=== PATIENT | male | born 1940 | race Caucasian/White ===

== ENCOUNTER 2017-02-25 18:06 | Inpatient (IN) | payer MEDICARE, OTHER ==
[2017-02-25] MEDS ORDERED: Bisacodyl 5 MG TAB PO PRN (20:04)
[2017-02-25] MEDS ORDERED: Morphine PF 1 MG/ML SYR IVP PRN (20:04)
[2017-02-25] MEDS ORDERED: Ondansetron HCl/PF 4 MG/2 ML Vial IVP PRN (20:04)
[2017-02-25] MEDS ORDERED: Ondansetron ODT 4 MG TAB SL PRN (20:04)
[2017-02-25] MEDS ORDERED: Acetaminophen 650 MG Suppository PR PRN (20:04)
[2017-02-25] MEDS ORDERED: Acetaminophen 325 MG TAB PO PRN (20:04)
[2017-02-25] MEDS ORDERED: Sodium Chloride 0.9% 1,000 ML IV SCH (20:15)
[2017-02-25] MEDS ORDERED: VANCOMYCIN IVPB PRN (20:27)
[2017-02-25] MEDS ORDERED: Vancomycin HCl 1 GM in Premix Bag 1 BAG IVPB SCH ×2 (20:30→21:00)
[2017-02-25] MEDS: Gabapentin 300 MG CAP PO SCH (20:54)
[2017-02-25] MEDS: Sodium Chloride 0.9% 1,000 ML IV SCH (21:50)
[2017-02-25] MEDS: Piperacillin/Tazobactam 4.5 GM in Sodium Chloride 0.9% 100 ML IVPB SCH (22:10)
--- NOTE | 2017-02-25 22:42 | HP ---
PRIMARY CARE PHYSICIAN: Dr. Get Paris M.D. CHIEF COMPLAINT: Cough. HISTORY OF PRESENT ILLNESS: Mr. De La Torre is a pleasant 77-year-old gentleman, who was seen at [facility] on 02/25/2017 following transfer from the emergency room at [place]. 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 He subsequently underwent bilateral tonsillecto my, followed by chemotherapy and radiation therapy for 7 weeks. His oncologist is Dr. Olivia Schmid. Following chemotherapy and radiation therapy, he was at home when he started getting weaker. Over t he last 2 weeks, he has been at inpatient rehabilitation. He reports that he has not been eating we ll. He also reports painful swallowing. Two days ago, he was found to have cough. He reports that it is productive of sputum, which is mucoid. He also reports having chills 2 days ago. He denies any vomiting or diarrhea. He denies any chest pain. He denies any abdominal pain. He reports gene ralized weakness. Today, he was found to be tremulous. He denies any lightheadedness. He was sent to the emergency r oom at [place] and from there he was transferred to [facility]. REVIEW OF SYSTEMS: The following complete review of systems was negative, unless otherwise mentione d in the HPI or below: Constitutional: Weight loss or gain, sense of well-being, ability to conduct usual activities, exer cise tolerance. Skin/Breast: Rash, itching, changes in hair growth or loss, nail changes, breast lumps, tenderness, swelling, nipple discharge. Eyes: Vision, double vision, tearing, blind spots, pain. ENT/Mouth: Headaches (location, time of onset, duration, precipitating factors), vertigo, lighthead edness, injury. Vision, double vision, tearing, blind spots, pain, nose bleeding, colds, obstruction , discharge, dental difficulties, gingival bleeding, dentures, neck stiffness, pain, tenderness, mas ses in thyroid or other areas Cardiovascular: Precordial pain, substernal distress, palpitations, syncope, dyspnea on exertion, o rthopnea, nocturnal paroxysmal dyspnea, edema, cyanosis, hypertension, heart murmurs, varicosities, phlebitis, claudication. Respiratory: Pain, shortness of breath, wheezing, stridor, cough, hemoptysis, fever or night sweats . Gastrointestinal: Poor appetite, dysphagia, indigestion, abdominal pain, heartburn, eructation, migel sea, vomiting, hematemesis, jaundice, constipation, or diarrhea, abnormal stools (karen-colored, radha y, bloody, greasy, foul smelling), flatulence, hemorrhoids, recent changes in bowel habits. Genitourinary: Urgency, frequency, dysuria, nocturia, hematuria, polyuria, oliguria, unusual (or ch corry in) color of urine, stones, hesitancy, change in size of stream, dribbling, acute retention or incontinence, libido, potency. Musculoskeletal: Pain, swelling, redness or heat of muscles or joints, limitation, of motion, muscular weakness, atrophy, cramps. Neurologic/Psychiatric: Convulsions, paralyses, tremor, incoordination, parasthesias, difficulties with memory of speech, sensory or motor disturbances, or muscular coordination (ataxia, tremor), emo tional problems, anxiety, depression, previous psychiatric care, unusual perceptions, hallucinations . Allergy/Immunologic: Skin rash, anemia, bleeding tendency, polydipsia, polyuria, intolerance to hea t or cold. PAST MEDICAL HISTORY: Significant for hepatitis C, reportedly cleared after antiviral therapy, cirr hosjonathan, tonsillar cancer, status post chemotherapy and radiation therapy. His next oncologist appoin tment is on 03/14/2017. PAST SURGICAL HISTORY: Significant for right knee replacement, hernia repair, and tonsillectomy. SOCIAL HISTORY: The patient denies tobacco use, alcohol use, or recreational drug use. FAMILY HISTORY: No family history of malignancy. CODE STATUS: I discussed his code status. He is FULL CODE. ALLERGIES: No known drug allergies. CURRENT MEDICATIONS: Include fentanyl 12 mcg per hour transdermal patch q.72 hours, gabapentin 300 mg 3 times a day, Lasix 40 mg daily, and spironolactone 25 mg daily. PHYSICAL EXAMINATION: GENERAL: Mr. De La Torre is awake and alert, appears tired. Not in acute distress. VITAL SIGNS: Blood pressure is 116/75, pulse is 87. He is breathing at rate of 21 and saturating 9 8% on 2 liters of oxygen. He is afebrile. Face appears emaciated. EYES: No scleral icterus. No conjunctival pallor. ENT: Dry mucosal membranes, no oropharyngeal erythema or exudates. NECK: Supple, nontender, normal range of movement. Trachea is midline. RESPIRATORY: Accessory muscles of breathing are not active. Chest wall movements are symmetric ilsa aterally. LUNGS: Examination reveals bronchial breathing over both upper lobes. CARDIOVASCULAR: S1 and S2 are heard, regular. Peripheral pulses palpable. No carotid bruit, no pe ricardial rub. ABDOMEN: Soft, distended, nontender, fluid thrill present, no hepatomegaly, no splenomegaly. SKIN: Radiation keratitis present over the left side of neck. Neck is erythematous. NEUROLOGIC: Cranial nerves II through XII intact, deep tendon reflexes 2+. MUSCULOSKELETAL: Power is 5/5 in all 4 extremities. Normal range of movement at all major extremit ies joints. He has pitting edema of both lower extremities LYMPHATIC: No cervical lymphadenopathy. PSYCHIATRIC: Normal mood, normal affect, patient is oriented to person, place, and time. LABORATORY DATA: Mr. De La Torre's labs and investigations were reviewed. He had chest x-ray at [facility] [place], which shows bilateral upper lobe pulmonary infiltrates. He is hyponatremic, with sodium of 1 26, potassium level is slightly elevated at 4.6, creatinine is normal at 0.8, blood urea nitrogen is elevated at 32.4, total bilirubin is mildly elevated at 1.7, alkaline phosphatase, AST and ALT are normal, albumin is decreased at 1.9, white count is elevated at 15,000, of which 89.8% are neutrophi ls, he has a hemoglobin of 12.2 and thrombocytopenia with platelet count of 117,000. ASSESSMENT AND PLAN: Mr. De La Torre is a pleasant 77-year-old gentleman, who was seen at [facility] on 02/25/2017. His problem list includes: 1. Pneumonia: Mr. Zuniga has been in and out of healthcare facilities. He will be treated with intravenous Zosyn, levofloxacin, and vancomycin. Once he improves, antibiotics will be narrowed. 2. Hyponatremia: We will provide intravenous normal saline, recheck sodium level. We will initiat e further workup if sodium level is not improving. Etiology unclear at this time, could be related to pneumonia. 3. Tonsillar cancer. The patient to follow up with his oncologist as scheduled. 4. Aspiration risk: We will request a swallow evaluation. 5. Generalized weakness: We will request a walking program to assess him. He may need physical th erapy evaluation and treatment. 6. Poor oral intake. The patient reports that it is secondary to pain. We will start him on GI co cktail. We will also request dietitian consult. Many thanks for allowing me to participate in your patient's care. Please feel free to contact me w ith any questions or concerns. LEVEL OF RISK: Moderate. LEVEL OF COMPLEXITY: Moderate.
[2017-02-26] MEDS: Lidocaine 2% Viscous Solution 10 ML, Aluminum & Magnesium Hydroxide 30 ML SSW PRN ×8 (05:23→20:33)
[2017-02-26] MEDS: Piperacillin/Tazobactam 4.5 GM in Sodium Chloride 0.9% 100 ML IVPB SCH ×3 (05:25→23:25)
[2017-02-26 05:29] LABS: Anion Gap 10 mmol/L (10-20); BUN (Urea Nitrogen) 29 mg/dL (8.4-25.7); Calc. Creatinine Clearance 87 mL/min (70-130); Calcium 7.7 mg/dL (7.8-10.44); Carbon Dioxide 24 mmol/L (23-31); Chloride 94 mmol/L (98-107); Estimated GFR-MDRD Greater than 90
[2017-02-26 05:50] LABS: #Eosinphils 0.2 thou/uL (0.0-0.7); #Lymphocytes 0.5 thou/uL (1.20-3.40); #Monocytes 0.7 thou/uL (0.11-0.59); #Neutrophils 5.8 thou/uL (1.40-6.50); %Basophils 0.5 % (0.0-1.0); %Eosinophils 2.7 % (0.0-10.0); %Lymphocytes 6.5 % (21.0-51.0); %Monocytes 9.1 % (0.0-10.0); Mean Platelet Volume 7.3 fL (7.4-10.4); Red Blood Cell (RBC) Count 3.83 mill/uL (4.70-6.10); White Blood Cell (WBC) Count 7.1 thou/uL (4.8-10.8)
[2017-02-26] MEDS: Vancomycin HCl 1.25 GM in Sodium Chloride 0.9% 250 ML 250 ML IVPB SCH ×2 (06:09→17:23)
[2017-02-26] MEDS: Furosemide 20 MG TAB PO SCH (07:32)
[2017-02-26] MEDS: Enoxaparin Sodium 40 MG/0.4 ML SYRINGE SC SCH (07:32)
[2017-02-26] MEDS: Gabapentin 300 MG CAP PO SCH ×3 (07:32→20:33)
[2017-02-26] MEDS: Spironolactone 100 MG TAB PO SCH (07:32)
--- NOTE | 2017-02-26 09:28 | RAD ---
PORTABLE UPRIGHT CHEST 1 VIEW: HISTORY: A 77-year-old male with pneumonia. FINDINGS: Patchy linear interstitial parenchymal changes are noted bilaterally in the perihilar regions and up per lung zones with some bilateral alveolar parenchymal changes as well. These findings are certain ly consistent with that of atypical bilateral pneumonia or bilateral pneumonitis. Heart size is wit hin normal limits. IMPRESSION: Bilateral interstitial and linear parenchymal changes, evidence for bilateral pneumonia and probably atypical pneumonia or pneumonitis. Treatment and short-term followup for complete clearing is pennie chong. POS: JUAN
[2017-02-26 09:45] LABS: Bilirubin Negative (Negative); Blood, Urine Negative (Negative); Glucose, Urine (Dipstick) Negative (Negative); Ketone, Urine Negative (Negative); Nitrite Negative (Negative); Protein, Urine (Dipstick) Negative (Neg-Trace); Urobilinogen 0.2 mg/dL (0.2-1.0)
[2017-02-26 09:50] LABS: Bacteria/HPF None Seen HPF (None Seen); Hyaline Casts/LPF 0-3 HYALINE CAST LPF (0-3 Hyaline); RBC/HPF 0-3 HPF (0-3); Squamous Epithelial None Seen HPF (0-3); WBC/HPF 0-3 HPF (0-3)
[2017-02-26] MEDS: Sodium Chloride 0.9% 1,000 ML IV SCH (11:50)
--- NOTE | 2017-02-26 11:57 | PDOC.PN ---
- Subjective Encounter Start Date: 02/26/17 Encounter Start Time: 11:00 Patient seen and examined. No new complaints. No overnight events - Objective Resuscitation Status: Resuscitation Status FULL:Full Resuscitation MAR Reviewed: Yes Vital Signs & Weight: Vital Signs (12 hours) Temp Pulse Resp BP BP Pulse Ox 02/26/17 08:00 97.4 F L 87 20 96 02/26/17 07:51 97.4 F L 87 20 109/68 92 L 02/26/17 04:00 98.0 F 80 18 111/67 94 L 02/26/17 00:00 97.7 F 89 18 100/64 92 L Weight Weight 168 lb I&O: 02/25/17 02/26/17 02/27/17 06:59 06:59 06:59 Intake Total 1550 240 Balance 1550 240 Result Diagrams: 02/26/17 04:53 02/26/17 04:53 Radiology Reviewed by me: Yes (chest xray) Phys Exam - Physical Examination Constitutional: NAD HEENT: PERRLA, moist MMs, sclera anicteric Neck: no JVD, supple Respiratory: no wheezing, no rales, no rhonchi Cardiovascular: RRR, no significant murmur, no rub Gastrointestinal: soft, positive bowel sounds ascites+ Musculoskeletal: edema present Neurological: non-focal, normal sensation Lymphatic: no nodes Psychiatric: normal affect Skin: no rash, normal turgor Dx/Plan (1) Cirrhosis of liver Code(s): K74.60 - UNSPECIFIED CIRRHOSIS OF LIVER Status: Acute Qualifiers: Ascites presence: with ascites (2) Ascites Code(s): R18.8 - OTHER ASCITES Status: Acute (3) Healthcare associated bacterial pneumonia Code(s): J15.9 - UNSPECIFIED BACTERIAL PNEUMONIA Status: Acute (4) Hyponatremia Code(s): E87.1 - HYPO-OSMOLALITY AND HYPONATREMIA Status: Acute (5) Thrombocytopenia Code(s): D69.6 - THROMBOCYTOPENIA, UNSPECIFIED Status: Acute (6) Anemia, normocytic normochromic Code(s): D64.9 - ANEMIA, UNSPECIFIED Status: Chronic (7) Failure to thrive Code(s): [id number] - Status: Chronic (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 SYSTEM Status: Chronic - Plan cont current plan of care, plan discussed w/ family, continue antibiotics * DC IVF * medication reviewed as below * symptomatic treatment. * follow up on culture * continue breanne crocker Review of Systems - Review of Systems Eyes: negative: Pain, Vision Change, Conjunctivae Inflammation, Eyelid Inflammation, Redness, Other ENT: negative: Ear Pain, Ear Discharge, Nose Pain, Nose Discharge, Nose Congestion, Mouth Pain, Mouth Swelling, Throat Pain, Throat Swelling, Other Respiratory: negative: Cough, Dry, Shortness of Breath, Hemoptysis, SOB with Excertion, Pleuritic Pain, Sputum, Wheezing Cardiovascular: Edema. negative: Chest Pain, Palpitations, Orthopnea, Paroxysmal Noc. Dyspnea, Light Headedness, Other Gastrointestinal: Abdominal Pain. negative: Nausea, Vomiting, Diarrhea, Constipation, Melena, Hematochezia, Other Genitourinary: negative: Dysuria, Frequency, Incontinence, Hematuria, Retention , Other Musculoskeletal: negative: Neck Pain, Shoulder Pain, Arm Pain, Back Pain, Hand Pain, Leg Pain, Foot Pain, Other Skin: negative: Rash, Lesions, Chi, Bruising, Other - Medications/Allergies Allergies/Adverse Reactions: Allergies Allergy/AdvReac Type Severity Reaction Status Date / Time No Known Allergies Allergy Verified 08/24/16 12:15 Medications: Current Medications Acetaminophen (Tylenol) 650 mg PO Q4H PRN PRN Reason: Headache/Fever or Pain Acetaminophen (Tylenol) 650 mg MS Q4H PRN PRN Reason: Headache/Fever or Pain Bisacodyl (Dulcolax) 10 mg PO DAILYPRN PRN PRN Reason: Constipation Lidocaine HCl 10 ml/ Al (Hydroxide/Mg Hydroxide 30 ml) 0 ml SSW TIDPRN PRN PRN Reason: painful swallowing Last Admin: 02/26/17 05:23 Dose: 1 dose Enoxaparin Sodium (Lovenox) 40 mg SC 0900 [facility] Last Admin: 02/26/17 07:32 Dose: 40 mg Fentanyl (Duragesic) 12 mcg TD Q3D [facility] Last Admin: 02/25/17 20:54 Dose: 12 mcg Furosemide (Lasix) 20 mg PO DAILY [facility] Last Admin: 02/26/17 07:32 Dose: 20 mg Gabapentin (Neurontin) 300 mg PO TID [facility] Last Admin: 02/26/17 07:32 Dose: 300 mg Levofloxacin 750 mg/ Device 150 mls @ 100 mls/hr IVPB Q24HR [facility] Sodium Chloride (Normal Saline 0.9%) 1,000 mls @ 70 mls/hr IV .[id number] [facility] Last Admin: 02/26/17 11:50 Dose: 1,000 mls Piperacillin Sod/Tazobactam (Sod 4.5 gm/ Sodium Chloride) 100 mls @ 200 mls/hr IVPB Q8HR [facility] Last Admin: 02/26/17 05:25 Dose: 100 mls Vancomycin HCl 1.25 gm/ Sodium (Chloride) 250 mls @ 166.667 mls/hr IVPB 0600, 1800 [facility] Last Admin: 02/26/17 06:09 Dose: 250 mls Miscellaneous Medication (Pharmacy To Dose) 1 each IVPB PRN PRN PRN Reason: PNEUMONIA Stop: 03/08/17 20:28 Spironolactone (Aldactone) 100 mg PO DAILY [facility] Last Admin: 02/26/17 07:32 Dose: 100 mg
[2017-02-27] MEDS: Vancomycin HCl 1.25 GM in Sodium Chloride 0.9% 250 ML 250 ML IVPB SCH ×2 (05:51→16:58)
[2017-02-27] MEDS: Piperacillin/Tazobactam 4.5 GM in Sodium Chloride 0.9% 100 ML IVPB SCH ×3 (05:51→21:34)
[2017-02-27 06:10] LABS: #Eosinphils 0.2 thou/uL (0.0-0.7); #Lymphocytes 0.5 thou/uL (1.20-3.40); #Monocytes 0.9 thou/uL (0.11-0.59); #Neutrophils 7.6 thou/uL (1.40-6.50); %Basophils 0.2 % (0.0-1.0); %Eosinophils 1.8 % (0.0-10.0); %Lymphocytes 5.6 % (21.0-51.0); %Monocytes 9.9 % (0.0-10.0); Mean Platelet Volume 7.6 fL (7.4-10.4); Red Blood Cell (RBC) Count 4.04 mill/uL (4.70-6.10); White Blood Cell (WBC) Count 9.3 thou/uL (4.8-10.8)
[2017-02-27 06:27] LABS: ALT (SGPT) 15 U/L (8-55); AST (SGOT) 38 U/L (5-34); Alkaline Phosphatase 62 U/L (40-150); Anion Gap 13 mmol/L (10-20); BUN (Urea Nitrogen) 27 mg/dL (8.4-25.7); Bilirubin, Total 2.3 mg/dL (0.2-1.2); Calc. Creatinine Clearance 82 mL/min (70-130); Carbon Dioxide 20 mmol/L (23-31); Chloride 96 mmol/L (98-107); Estimated GFR-MDRD 89; Globulin 4.6 g/dL (2.4-3.5); Protein, Total 6.3 g/dL (5.8-8.1)
[2017-02-27] MEDS: Gabapentin 300 MG CAP PO SCH ×3 (07:37→19:48)
[2017-02-27] MEDS: Enoxaparin Sodium 40 MG/0.4 ML SYRINGE SC SCH (07:37)
[2017-02-27] MEDS: Furosemide 20 MG TAB PO SCH (07:37)
[2017-02-27] MEDS: Spironolactone 100 MG TAB PO SCH (07:37)
[2017-02-27] MEDS ORDERED: Eucerin (Mineral Oil/Petrolatum,White) 30 gm Jar TOP PRN (09:49)
[2017-02-27] MEDS ORDERED: Ondansetron ODT 4 MG TAB PO PRN (09:49)
[2017-02-27] MEDS ORDERED: hydrALAZINE 20 MG/ML VIAL SLOW IVP PRN (09:49)
[2017-02-27] MEDS ORDERED: Sodium Chloride 0.65% Nasal 44 ML BOT EA NARE PRN (09:49)
[2017-02-27] MEDS ORDERED: Milk Of Magnesia 30 ML UDCUP PO PRN (09:49)
[2017-02-27] MEDS ORDERED: Diabetic Tussin 200 MG/10 ML UDCUP PO PRN (09:49)
[2017-02-27] MEDS ORDERED: Ondansetron HCl/PF 4 MG/2 ML Vial IVP PRN (09:49)
[2017-02-27] MEDS ORDERED: Chloraseptic Spray 180 ml Bottle PO PRN (09:49)
[2017-02-27] MEDS ORDERED: Loratadine 10 MG TAB PO PRN (09:49)
[2017-02-27] MEDS ORDERED: Artificial Tears 18 DROP/0.9 ML EA EYE PRN (09:49)
[2017-02-27] MEDS ORDERED: Mag-Al 1200 mg/1200 mg/30 ML UDCUP PO PRN (09:49)
[2017-02-27] MEDS ORDERED: HYDROcodone/Acetaminophen 5/325 mg Tablet PO PRN (09:49)
[2017-02-27] MEDS ORDERED: Furosemide 20 MG/2 ML VIAL SLOW IVP SCH (10:00)
[2017-02-27] MEDS: Lidocaine 2% Viscous Solution 10 ML, Aluminum & Magnesium Hydroxide 30 ML SSW PRN ×6 (11:34→19:48)
--- NOTE | 2017-02-27 12:28 | PDOC.PN ---
- Subjective Encounter Start Date: 02/27/17 Encounter Start Time: 07:30 Patient seen and examined. feels better, less cough, no fever, weak. No overnight events - Objective Resuscitation Status: Resuscitation Status FULL:Full Resuscitation MAR Reviewed: Yes Vital Signs & Weight: Vital Signs (12 hours) Temp Pulse Resp BP Pulse Ox 02/27/17 08:00 97.7 F 87 18 121/79 96 02/27/17 03:18 97.3 F L 89 18 138/96 H 94 L Weight Admit Weight 168 lb Weight 168 lb I&O: 02/26/17 02/27/17 02/28/17 06:59 06:59 06:59 Intake Total 1550 1870 360 Balance 1550 1870 360 Result Diagrams: 02/27/17 05:52 02/27/17 05:52 Phys Exam - Physical Examination Constitutional: NAD HEENT: PERRLA, moist MMs, sclera anicteric Neck: no JVD, supple radiation skin changes around neck Respiratory: no wheezing, no rales, no rhonchi Cardiovascular: RRR, no significant murmur, no rub Gastrointestinal: soft, non-tender, positive bowel sounds ascites Musculoskeletal: pulses present, edema present Neurological: non-focal, normal sensation Lymphatic: no nodes Psychiatric: normal affect, A&O x 3 Skin: no rash, normal turgor Dx/Plan (1) Cirrhosis of liver Code(s): K74.60 - UNSPECIFIED CIRRHOSIS OF LIVER Status: Acute Qualifiers: Ascites presence: with ascites (2) Ascites Code(s): R18.8 - OTHER ASCITES Status: Acute Qualifiers: Ascites type: due to alcoholic cirrhosis Qualified Code(s): K70.31 - Alcoholic cirrhosis of liver with ascites (3) Healthcare associated bacterial pneumonia Code(s): J15.9 - UNSPECIFIED BACTERIAL PNEUMONIA Status: Acute (4) Hyponatremia Code(s): E87.1 - HYPO-OSMOLALITY AND HYPONATREMIA Status: Acute (5) Thrombocytopenia Code(s): D69.6 - THROMBOCYTOPENIA, UNSPECIFIED Status: Acute (6) Anemia, normocytic normochromic Code(s): D64.9 - ANEMIA, UNSPECIFIED Status: Chronic (7) Failure to thrive Code(s): [id number] - Status: Chronic (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 SYSTEM Status: Chronic - Plan cont current plan of care, continue antibiotics * continue vancomycin and zosyn * start PT * fluid rectriction advised * add IV lasix for diuresis * medication reviewed as below * symptomatic treatment. * repeat labs tomorrow * follow culture Review of Systems - Review of Systems Constitutional: Weakness. negative: Fever, Chills, Sweats, Malaise, Other ENT: negative: Ear Pain, Ear Discharge, Nose Pain, Nose Discharge, Nose Congestion, Mouth Pain, Mouth Swelling, Throat Pain, Throat Swelling, Other Respiratory: Cough. negative: Dry, Shortness of Breath, Hemoptysis, SOB with Excertion, Pleuritic Pain, Sputum, Wheezing Cardiovascular: negative: Chest Pain, Palpitations, Orthopnea, Paroxysmal Noc. Dyspnea, Edema, Light Headedness, Other Gastrointestinal: negative: Nausea, Vomiting, Abdominal Pain, Diarrhea, Constipation, Melena, Hematochezia, Other Genitourinary: negative: Dysuria, Frequency, Incontinence, Hematuria, Retention , Other Musculoskeletal: negative: Neck Pain, Shoulder Pain, Arm Pain, Back Pain, Hand Pain, Leg Pain, Foot Pain, Other Skin: negative: Rash, Lesions, Chi, Bruising, Other - Medications/Allergies Allergies/Adverse Reactions: Allergies Allergy/AdvReac Type Severity Reaction Status Date / Time No Known Allergies Allergy Verified 08/24/16 12:15 Medications: Current Medications Acetaminophen (Tylenol) 650 mg PO Q4H PRN PRN Reason: Headache/Fever or Pain Acetaminophen (Tylenol) 650 mg CA Q4H PRN PRN Reason: Headache/Fever or Pain Hydrocodone Bitart/Acetaminophen ([place] 5/325) 1 tab PO Q4H PRN PRN Reason: Moderate Pain (4-6) Al Hydroxide/Mg Hydroxide (Maalox) 15 ml PO Q4H PRN PRN Reason: Heartburn or Indigestion Artificial Tears (Tears Naturale) 0 drop EA EYE PRN PRN PRN Reason: Dry Eyes Bisacodyl (Dulcolax) 10 mg PO DAILYPRN PRN PRN Reason: Constipation Lidocaine HCl 10 ml/ Al (Hydroxide/Mg Hydroxide 30 ml) 0 ml SSW TIDPRN PRN PRN Reason: painful swallowing Last Admin: 02/27/17 11:34 Dose: 1 dose Enoxaparin Sodium (Lovenox) 40 mg SC 0900 [facility] Last Admin: 02/27/17 07:37 Dose: 40 mg Famotidine (Pepcid) 20 mg PO BID [facility] Fentanyl (Duragesic) 12 mcg TD Q3D [facility] Last Admin: 02/25/17 20:54 Dose: 12 mcg Furosemide (Lasix) 20 mg SLOW IVP 0600,1400 [facility] Gabapentin (Neurontin) 300 mg PO TID [facility] Last Admin: 02/27/17 07:37 Dose: 300 mg Guaifenesin (Robitussin Sf) 200 mg PO Q4H PRN PRN Reason: Cough Hydralazine HCl (Apresoline) 10 mg SLOW IVP Q4H PRN PRN Reason: Systolic BP > 180 Levofloxacin 750 mg/ Device 150 mls @ 100 mls/hr IVPB Q24HR [facility] Last Admin: 02/26/17 20:33 Dose: 150 mls Piperacillin Sod/Tazobactam (Sod 4.5 gm/ Sodium Chloride) 100 mls @ 200 mls/hr IVPB Q8HR [facility] Last Admin: 02/27/17 05:51 Dose: 100 mls Vancomycin HCl 1.25 gm/ Sodium (Chloride) 250 mls @ 166.667 mls/hr IVPB 0600, 1800 [facility] Last Admin: 02/27/17 05:51 Dose: 250 mls Lactulose (Lactulose) 10 gm PO DAILYPRN PRN PRN Reason: Constipation Loperamide HCl (Imodium) 2 mg PO PRN PRN PRN Reason: Diarrhea/Loose Stools Loratadine (Claritin) 10 mg PO DAILYPRN PRN PRN Reason: Sinus Symptoms Magnesium Hydroxide (Milk Of Magnesium) 30 ml PO DAILYPRN PRN PRN Reason: Constipation Mineral Oil/White Petrolatum (Eucerin Cream) 0 gm TOP BIDPRN PRN PRN Reason: Dry Skin Miscellaneous Medication (Pharmacy To Dose) 1 each IVPB PRN PRN PRN Reason: PNEUMONIA Stop: 03/08/17 20:28 Ondansetron HCl (Zofran Odt) 4 mg PO Q6H PRN PRN Reason: Nausea/Vomiting Ondansetron HCl (Zofran) 4 mg IVP Q6H PRN PRN Reason: Nausea/Vomiting Phenol (Chloraseptic [place] 180 Ml Bot) 0 ml PO PRN PRN PRN Reason: Sore Throat Sodium Chloride ([place] Nasal [place] 0.65%) 0 ml EA NARE QIDPRN PRN PRN Reason: Nasal Congestion Spironolactone (Aldactone) 100 mg PO DAILY [facility] Last Admin: 02/27/17 07:37 Dose: 100 mg
[2017-02-27] MEDS: Furosemide 20 MG/2 ML VIAL SLOW IVP SCH (14:06)
[2017-02-27] MEDS: Famotidine 20 MG TAB PO SCH (19:48)
[2017-02-28 05:24] LABS: PTT 42.5 SEC (22.9-36.1)
[2017-02-28 05:38] LABS: Anion Gap 12 mmol/L (10-20); BUN (Urea Nitrogen) 29 mg/dL (8.4-25.7); Calc. Creatinine Clearance 72 mL/min (70-130); Calcium 8.4 mg/dL (7.8-10.44); Carbon Dioxide 23 mmol/L (23-31); Chloride 95 mmol/L (98-107); Estimated GFR-MDRD 77
[2017-02-28 05:47] LABS: Vancomycin, Trough 32.6 ug/mL
[2017-02-28] MEDS: Piperacillin/Tazobactam 4.5 GM in Sodium Chloride 0.9% 100 ML IVPB SCH ×3 (06:15→21:57)
[2017-02-28] MEDS: Furosemide 20 MG/2 ML VIAL SLOW IVP SCH (06:15)
[2017-02-28] MEDS: Lidocaine 2% Viscous Solution 10 ML, Aluminum & Magnesium Hydroxide 30 ML SSW PRN ×6 (06:31→17:02)
[2017-02-28] MEDS: Loperamide HCl 2 MG CAP PO PRN ×2 (06:35→21:39)
[2017-02-28] MEDS: Famotidine 20 MG TAB PO SCH ×2 (08:04→21:39)
[2017-02-28] MEDS: Gabapentin 300 MG CAP PO SCH ×3 (08:04→21:39)
[2017-02-28] MEDS: Spironolactone 100 MG TAB PO SCH (08:04)
[2017-02-28] MEDS: Enoxaparin Sodium 40 MG/0.4 ML SYRINGE SC SCH (08:05)
--- NOTE | 2017-02-28 13:16 | PDOC.PN ---
- Subjective Encounter Start Date: 02/28/17 Encounter Start Time: 07:30 pt has hard time to cough out sputum, no fever, still has edema, feels weak - Objective Resuscitation Status: Resuscitation Status FULL:Full Resuscitation MAR Reviewed: Yes Vital Signs & Weight: Vital Signs (12 hours) Temp Pulse Resp BP Pulse Ox 02/28/17 11:58 97.7 F 85 18 120/79 95 02/28/17 08:00 97.6 F 91 20 02/28/17 07:22 97.6 F 91 20 123/79 94 L 02/28/17 03:46 97.5 F L 90 20 128/61 95 Weight Admit Weight 168 lb Weight 168 lb I&O: 02/27/17 02/28/17 03/01/17 06:59 06:59 06:59 Intake Total 1870 1830 480 Balance 1870 1830 480 Result Diagrams: 02/27/17 05:52 02/28/17 05:04 Additional Labs: Accuchecks 02/28/17 07:57 POC Glucose 106 Phys Exam - Physical Examination Constitutional: NAD HEENT: PERRLA, moist MMs, sclera anicteric Neck: no JVD, supple gurgling sound+ coarse sound+ Cardiovascular: RRR, no significant murmur Gastrointestinal: soft, positive bowel sounds ascites+ Musculoskeletal: pulses present, edema present Neurological: non-focal, normal sensation Psychiatric: normal affect, A&O x 3 Skin: no rash, normal turgor Dx/Plan (1) Cirrhosis of liver Code(s): K74.60 - UNSPECIFIED CIRRHOSIS OF LIVER Status: Acute Qualifiers: Ascites presence: with ascites (2) Ascites Code(s): R18.8 - OTHER ASCITES Status: Acute Qualifiers: Ascites type: due to alcoholic cirrhosis Qualified Code(s): K70.31 - Alcoholic cirrhosis of liver with ascites (3) Healthcare associated bacterial pneumonia Code(s): J15.9 - UNSPECIFIED BACTERIAL PNEUMONIA Status: Acute (4) Hyponatremia Code(s): E87.1 - HYPO-OSMOLALITY AND HYPONATREMIA Status: Acute (5) Thrombocytopenia Code(s): D69.6 - THROMBOCYTOPENIA, UNSPECIFIED Status: Acute (6) Anemia, normocytic normochromic Code(s): D64.9 - ANEMIA, UNSPECIFIED Status: Chronic (7) Failure to thrive Code(s): [id number] - Status: Chronic (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 SYSTEM Status: Chronic - Plan cont current plan of care, continue antibiotics * continue vancomycin and zosyn * increase lasix * add mucinex * start PT. * medication reviewed as below * symptomatic treatment * will need placement Review of Systems - Review of Systems Constitutional: Weakness. negative: Fever, Chills, Sweats, Malaise, Other Respiratory: Cough, Shortness of Breath, Sputum. negative: Dry, Hemoptysis, SOB with Excertion, Pleuritic Pain, Wheezing Cardiovascular: Edema. negative: Chest Pain, Palpitations, Orthopnea, Paroxysmal Noc. Dyspnea, Light Headedness, Other Gastrointestinal: Diarrhea. negative: Nausea, Vomiting, Abdominal Pain, Constipation, Melena, Hematochezia, Other Genitourinary: negative: Dysuria, Frequency, Incontinence, Hematuria, Retention , Other Musculoskeletal: negative: Neck Pain, Shoulder Pain, Arm Pain, Back Pain, Hand Pain, Leg Pain, Foot Pain, Other - Medications/Allergies Allergies/Adverse Reactions: Allergies Allergy/AdvReac Type Severity Reaction Status Date / Time No Known Allergies Allergy Verified 08/24/16 12:15 Medications: Current Medications Acetaminophen (Tylenol) 650 mg PO Q4H PRN PRN Reason: Headache/Fever or Pain Acetaminophen (Tylenol) 650 mg [place] Q4H PRN PRN Reason: Headache/Fever or Pain Hydrocodone Bitart/Acetaminophen ([place] 5/325) 1 tab PO Q4H PRN PRN Reason: Moderate Pain (4-6) Al Hydroxide/Mg Hydroxide (Maalox) 15 ml PO Q4H PRN PRN Reason: Heartburn or Indigestion Albuterol/Ipratropium (Duoneb) 3 ml NEB [id number] KARLA Artificial Tears (Tears Naturale) 0 drop EA EYE PRN PRN PRN Reason: Dry Eyes Bisacodyl (Dulcolax) 10 mg PO DAILYPRN PRN PRN Reason: Constipation Lidocaine HCl 10 ml/ Al (Hydroxide/Mg Hydroxide 30 ml) 0 ml SSW TIDPRN PRN PRN Reason: painful swallowing Last Admin: 02/28/17 12:16 Dose: 1 dose Enoxaparin Sodium (Lovenox) 40 mg SC 0900 [facility] Last Admin: 02/28/17 08:05 Dose: 40 mg Famotidine (Pepcid) 20 mg PO BID [facility] Last Admin: 02/28/17 08:04 Dose: 20 mg Fentanyl (Duragesic) 12 mcg TD Q3D [facility] Last Admin: 02/25/17 20:54 Dose: 12 mcg Furosemide (Lasix) 40 mg SLOW IVP 0600,1400 [facility] Gabapentin (Neurontin) 300 mg PO TID [facility] Last Admin: 02/28/17 08:04 Dose: 300 mg Guaifenesin (Robitussin Sf) 200 mg PO Q4H PRN PRN Reason: Cough Guaifenesin (Mucinex) 600 mg PO Q12HR [facility] Hydralazine HCl (Apresoline) 10 mg SLOW IVP Q4H PRN PRN Reason: Systolic BP > 180 Levofloxacin 750 mg/ Device 150 mls @ 100 mls/hr IVPB Q24HR [facility] Last Admin: 02/27/17 19:48 Dose: 150 mls Piperacillin Sod/Tazobactam (Sod 4.5 gm/ Sodium Chloride) 100 mls @ 200 mls/hr IVPB Q8HR [facility] Last Admin: 02/28/17 06:15 Dose: 100 mls Vancomycin HCl 1.25 gm/ Sodium (Chloride) 250 mls @ 166.667 mls/hr IVPB 0600, 1800 [facility] Lactulose (Lactulose) 10 gm PO DAILYPRN PRN PRN Reason: Constipation Loperamide HCl (Imodium) 2 mg PO PRN PRN PRN Reason: Diarrhea/Loose Stools Last Admin: 02/28/17 06:35 Dose: 2 mg Loratadine (Claritin) 10 mg PO DAILYPRN PRN PRN Reason: Sinus Symptoms Magnesium Hydroxide (Milk Of Magnesium) 30 ml PO DAILYPRN PRN PRN Reason: Constipation Mineral Oil/White Petrolatum (Eucerin Cream) 0 gm TOP BIDPRN PRN PRN Reason: Dry Skin Miscellaneous Medication (Pharmacy To Dose) 1 each IVPB PRN PRN PRN Reason: PNEUMONIA Stop: 03/08/17 20:28 Ondansetron HCl (Zofran Odt) 4 mg PO Q6H PRN PRN Reason: Nausea/Vomiting Ondansetron HCl (Zofran) 4 mg IVP Q6H PRN PRN Reason: Nausea/Vomiting Phenol (Chloraseptic [place] 180 Ml Bot) 0 ml PO PRN PRN PRN Reason: Sore Throat Sodium Chloride ([place] Nasal [place] 0.65%) 0 ml EA NARE QIDPRN PRN PRN Reason: Nasal Congestion Spironolactone (Aldactone) 100 mg PO DAILY [facility] Last Admin: 02/28/17 08:04 Dose: 100 mg
[2017-02-28] MEDS: Furosemide 40 MG/4 ML VIAL SLOW IVP SCH (13:32)
[2017-02-28 19:05] LABS: Vancomycin, Random 26.6 ug/mL (See Comment)
[2017-02-28] MEDS: guaiFENesin ER 600 MG TAB PO SCH (21:39)
[2017-03-01] MEDS: Lidocaine 2% Viscous Solution 10 ML, Aluminum & Magnesium Hydroxide 30 ML SSW PRN ×2 (04:24)
[2017-03-01 05:15] LABS: Anion Gap 14 mmol/L (10-20); BUN (Urea Nitrogen) 28 mg/dL (8.4-25.7); Calc. Creatinine Clearance 72 mL/min (70-130); Calcium 8.3 mg/dL (7.8-10.44); Carbon Dioxide 21 mmol/L (23-31); Chloride 96 mmol/L (98-107); Estimated GFR-MDRD 76; Magnesium 1.9 mg/dL (1.6-2.6)
[2017-03-01 05:29] LABS: Band 6 % (5-11); Hematocrit 38.9 % (42.0-52.0); Mean Platelet Volume 6.8 fL (7.4-10.4); Neutrophil 86 % (42-75); Red Blood Cell (RBC) Count 4.08 mill/uL (4.70-6.10); White Blood Cell (WBC) Count 9.2 thou/uL (4.8-10.8)
[2017-03-01] MEDS: Piperacillin/Tazobactam 4.5 GM in Sodium Chloride 0.9% 100 ML IVPB SCH ×3 (06:37→22:24)
[2017-03-01] MEDS: Furosemide 40 MG/4 ML VIAL SLOW IVP SCH ×2 (06:37→15:39)
[2017-03-01] MEDS: Enoxaparin Sodium 40 MG/0.4 ML SYRINGE SC SCH (08:03)
[2017-03-01] MEDS: guaiFENesin ER 600 MG TAB PO SCH ×2 (08:04→20:58)
[2017-03-01] MEDS: Gabapentin 300 MG CAP PO SCH ×3 (08:04→20:59)
[2017-03-01] MEDS: Famotidine 20 MG TAB PO SCH ×2 (08:05→20:58)
[2017-03-01] MEDS: Spironolactone 100 MG TAB PO SCH (08:05)
[2017-03-01 09:02] LABS: Vancomycin, Random 19.4 ug/mL (See Comment)
[2017-03-01] MEDS: Vancomycin HCl 1.25 GM in Sodium Chloride 0.9% 250 ML 250 ML IVPB SCH ×2 (10:32→10:33)
[2017-03-01] MEDS: Vancomycin HCl 750 MG in Sodium Chloride 0.9% 250 ML 250 ML IVPB SCH ×2 (10:49→23:12)
--- NOTE | 2017-03-01 13:24 | RAD ---
MODIFIED BARIUM SWALLOW WITH SPEECH THERAPIST: History: 77-year-old male with oropharyngeal disphasia and feeding difficulties. Fluoroscopy time: 2.2 minutes; dose of 0.615 mGy*cm\S\2. FINDINGS: The patient exhibited marked pooling in the vallecula as well as the pyriform sinuses. There was pro minent penetration and some aspiration with numerous consistencies. IMPRESSION: Penetration and aspiration with numerous consistencies. Please see speech therapy report for additional findings and recommendations. POS: JUAN
--- NOTE | 2017-03-01 13:30 | PDOC.PN ---
"- Subjective Encounter Start Date: 03/01/17 Encounter Start Time: 11:00 Patient seen and examined. No new complaints. No overnight events - Objective Resuscitation Status: Resuscitation Status FULL:Full Resuscitation MAR Reviewed: Yes Vital Signs & Weight: Vital Signs (12 hours) Temp Pulse Resp BP Pulse Ox 03/01/17 12:42 103 H 20 94 L 03/01/17 08:21 98.0 F 99 18 120/73 87 L 03/01/17 08:00 98.0 F 99 18 94 L 03/01/17 06:41 89 16 89 L 03/01/17 04:00 97.6 F 89 20 121/74 92 L Weight Admit Weight 168 lb Weight 168 lb I&O: 02/28/17 03/01/17 03/02/17 06:59 06:59 06:59 Intake Total 1829 Balance 1829 Result Diagrams: 03/01/17 04:22 03/01/17 04:22 Phys Exam - Physical Examination Constitutional: NAD HEENT: PERRLA, moist MMs, sclera anicteric Neck: no JVD, supple Respiratory: no wheezing, no rhonchi coarse rales+ scattered Cardiovascular: RRR, no significant murmur, no rub Gastrointestinal: soft, positive bowel sounds ascites|+ Musculoskeletal: pulses present, edema present Neurological: non-focal, normal sensation Psychiatric: normal affect, A&O x 3 Skin: no rash, normal turgor Dx/Plan (1) Cirrhosis of liver Code(s): K74.60 - UNSPECIFIED CIRRHOSIS OF LIVER Status: Acute Qualifiers: Ascites presence: with ascites (2) Ascites Code(s): R18.8 - OTHER ASCITES Status: Acute Qualifiers: Ascites type: due to alcoholic cirrhosis Qualified Code(s): K70.31 - Alcoholic cirrhosis of liver with ascites (3) Healthcare associated bacterial pneumonia Code(s): J15.9 - UNSPECIFIED BACTERIAL PNEUMONIA Status: Acute (4) Hyponatremia Code(s): E87.1 - HYPO-OSMOLALITY AND HYPONATREMIA Status: Acute (5) Thrombocytopenia Code(s): D69.6 - THROMBOCYTOPENIA, UNSPECIFIED Status: Acute (6) Anemia, normocytic normochromic Code(s): D64.9 - ANEMIA, UNSPECIFIED Status: Chronic (7) Failure to thrive Code(s): [id number] - Status: Chronic (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 SYSTEM Status: Chronic (9) Oropharyngeal dysphagia Code(s): R13.12 - DYSPHAGIA, OROPHARYNGEAL PHASE Status: Acute (10) Chronic hepatitis C Code(s): B18.2 - CHRONIC VIRAL HEPATITIS C Status: Chronic - Plan cont current plan of care, continue antibiotics, PT/OT, social research assistant, speech therapy * continue empiric antibiotics as below * spoke with speech therapy, pt is at risk for aspiration * discussed with patient about speech therapy result, he agreed with risk of aspiration with safest diet * medication reviewed as below * symptomatic treatment * tomorrow will repeat chest xray * continue IV lasix * will need placement when more stable. * peg is not a good option given ascites Review of Systems - Review of Systems ENT: negative: Ear Pain, Ear Discharge, Nose Pain, Nose Discharge, Nose Congestion, Mouth Pain, Mouth Swelling, Throat Pain, Throat Swelling, Other Respiratory: Cough. negative: Dry, Shortness of Breath, Hemoptysis, SOB with Excertion, Pleuritic Pain, Sputum, Wheezing Cardiovascular: Edema. negative: Chest Pain, Palpitations, Orthopnea, Paroxysmal Noc. Dyspnea, Light Headedness, Other Gastrointestinal: negative: Nausea, Vomiting, Abdominal Pain, Diarrhea, Constipation, Melena, Hematochezia, Other Genitourinary: negative: Dysuria, Frequency, Incontinence, Hematuria, Retention , Other Musculoskeletal: negative: Neck Pain, Shoulder Pain, Arm Pain, Back Pain, Hand Pain, Leg Pain, Foot Pain, Other Skin: negative: Rash, Lesions, Chi, Bruising, Other - Medications/Allergies Allergies/Adverse Reactions: Allergies Allergy/AdvReac Type Severity Reaction Status Date / Time No Known Allergies Allergy Verified 08/24/16 12:15 Medications: Current Medications Acetaminophen (Tylenol) 650 mg PO Q4H PRN PRN Reason: Headache/Fever or Pain Acetaminophen (Tylenol) 650 mg [place] Q4H PRN PRN Reason: Headache/Fever or Pain Hydrocodone Bitart/Acetaminophen ([place] 5/325) 1 tab PO Q4H PRN PRN Reason: Moderate Pain (4-6) Al Hydroxide/Mg Hydroxide (Maalox) 15 ml PO Q4H PRN PRN Reason: Heartburn or Indigestion Albuterol/Ipratropium (Duoneb) 3 ml NEB [id number] [facility] Last Admin: 03/01/17 12:42 Dose: 3 ml Artificial Tears (Tears Naturale) 0 drop EA EYE PRN PRN PRN Reason: Dry Eyes Bisacodyl (Dulcolax) 10 mg PO DAILYPRN PRN PRN Reason: Constipation Lidocaine HCl 10 ml/ Al (Hydroxide/Mg Hydroxide 30 ml) 0 ml SSW TIDPRN PRN PRN Reason: painful swallowing Last Admin: 03/01/17 04:24 Dose: 1 dose Enoxaparin Sodium (Lovenox) 40 mg SC 0900 [facility] Last Admin: 03/01/17 08:03 Dose: 40 mg Famotidine (Pepcid) 20 mg PO BID [facility] Last Admin: 03/01/17 08:05 Dose: 20 mg Fentanyl (Duragesic) 12 mcg TD Q3D [facility] Last Admin: 02/28/17 21:43 Dose: 12 mcg Furosemide (Lasix) 40 mg SLOW IVP 0600,1400 [facility] Last Admin: 03/01/17 06:37 Dose: 40 mg Gabapentin (Neurontin) 300 mg PO TID [facility] Last Admin: 03/01/17 08:04 Dose: 300 mg Guaifenesin (Robitussin Sf) 200 mg PO Q4H PRN PRN Reason: Cough Guaifenesin (Mucinex) 600 mg PO Q12HR [facility] Last Admin: 03/01/17 08:04 Dose: 600 mg Hydralazine HCl (Apresoline) 10 mg SLOW IVP Q4H PRN PRN Reason: Systolic BP > 180 Levofloxacin 750 mg/ Device 150 mls @ 100 mls/hr IVPB Q24HR [facility] Last Admin: 02/28/17 21:43 Dose: 150 mls Piperacillin Sod/Tazobactam (Sod 4.5 gm/ Sodium Chloride) 100 mls @ 200 mls/hr IVPB Q8HR [facility] Last Admin: 03/01/17 06:37 Dose: 100 mls Vancomycin HCl 750 mg/ Sodium (Chloride) 250 mls @ 250 mls/hr IVPB 1200,2359 [facility] Last Admin: 03/01/17 10:49 Dose: 250 mls Lactulose (Lactulose) 10 gm PO DAILYPRN PRN PRN Reason: Constipation Loperamide HCl (Imodium) 2 mg PO PRN PRN PRN Reason: Diarrhea/Loose Stools Last Admin: 02/28/17 21:39 Dose: 2 mg Loratadine (Claritin) 10 mg PO DAILYPRN PRN PRN Reason: Sinus Symptoms Magnesium Hydroxide (Milk Of Magnesium) 30 ml PO DAILYPRN PRN PRN Reason: Constipation Mineral Oil/White Petrolatum (Eucerin Cream) 0 gm TOP BIDPRN PRN PRN Reason: Dry Skin Miscellaneous Medication (Pharmacy To Dose) 1 each IVPB PRN PRN PRN Reason: PNEUMONIA Stop: 03/08/17 20:28 Ondansetron HCl (Zofran Odt) 4 mg PO Q6H PRN PRN Reason: Nausea/Vomiting Ondansetron HCl (Zofran) 4 mg IVP Q6H PRN PRN Reason: Nausea/Vomiting Phenol (Chloraseptic [place] 180 Ml Bot) 0 ml PO PRN PRN PRN Reason: Sore Throat Sodium Chloride ([place] Nasal [place] 0.65%) 0 ml EA NARE QIDPRN PRN PRN Reason: Nasal Congestion Spironolactone (Aldactone) 100 mg PO DAILY [facility] Last Admin: 03/01/17 08:05 Dose: 100 mg"
--- NOTE | 2017-03-01 16:43 | PQF ---
CLINICAL DOCUMENTATION IMPROVEMENT CLARIFICATION FORM: ICD-10 Updated PLEASE DO AN ADDENDUM TO THE PROGRESS NOTE WITH ANY DOCUMENTATION UPDATES OR ADDITIONS AND CARRY THROUGH TO DC SUMMARY. THANK YOU. DATE: 03/01/17 ATTN: DR. THOMAS Please exercise your independent, professional judgment in responding to the clarification form. Clinical indicators are provided on the bottom of this form for your review Please check appropriate box(s): [ x ] Aspiration Pneumonia [ ] Aspiration Bronchitis [ ] Empirically treating Gram Negative Pneumonia [ ] Empirically treating Anaerobic Pneumonia [ ] Pneumonia secondary to (specify organism / underlying disease) [ ] Simple Pneumonia (community acquired - nosocomial) [ ] Bronchopneumonia [ ] Pneumonia of unknown etiology [ ] Other diagnosis [ ] Unable to determine In addition, please specify: Present on Admission (POA): [x ] Yes [ ] No [ ] Unable to determine For continuity of documentation, please document condition throughout progress notes and discharge summary. Thank You. CLINICAL INDICATORS - SIGNS / SYMPTOMS / LABS ER NOTE: "PNEUMONIA" H&P 02/25: "ASPIRATION RISK: WE WILL REQUEST A SWALLOW EVALUATION" H&P: "HEALTHCARE ASSOCIATED BACTERIAL PNEUMONIA" IMAGING REPORT: "THE PATIENT EXHIBITED MARKED POOLING IN THE VALLECULA WELL THE PYRIFORM SINUSES. THERE WAS PROMINENT PENETRATION AND SOME ASPIRATION WITH NUMEROUS CONSISTENCIES." RISKS: OROPHARYNGEAL DYSPHAGIA AND FEEDING DIFFICULTIES" PER IMAGING REPORT TREATMENT: IV LEVAQUIN (ER-PRESENT) IV ZOSYN (02/25-PRESENT) IV VANCOMYCIN (03/01) SPEECH THERAPY CONSULT DIETARY CONSULT (This form is maintained as a part of the permanent medical record) 2014 [employer]. All Rights Reserved [email or web address] Office: [phone] [facility]
--- NOTE | 2017-03-01 16:59 | PQF ---
CLINICAL DOCUMENTATION IMPROVEMENT CLARIFICATION FORM: ICD-10 Updated PLEASE DO AN ADDENDUM TO THE PROGRESS NOTE WITH ANY DOCUMENTATION UPDATES OR ADDITIONS AND CARRY THROUGH TO DC SUMMARY. THANK YOU. Date: 03/01/17 ATTN: DR. THOMAS Please exercise your independent, professional judgment in responding to the clarification form. Clinical indicators are provided on the bottom of this form for your review Please check appropriate box(s): [ x ] Protein Calorie Malnutrition: [ ] Mild [ x ] Moderate [ ] Severe [ ] Other Malnutrition (please specify) __ [ ] Underweight without malnutrition [ ] Cachexia [ ] Other diagnosis [ ] Unable to determine In addition, please specify: Present on Admission (POA): [ x] Yes [ ] No [ ] Unable to determine CLINICAL INDICATORS - SIGNS / SYMPTOMS / LABS DIETARY NOTE 02/26: "POOR ORAL INTAKE" "KCAL AND PROTEIN REQUIREMENTS LIKELY NOT MET" "MONITORING FOR WEIGHT CHANGE" "ABDOMEN IS LRG/ROUND/FIRM/DISTENDED/ASCITIC" "4+ PITTING EDEMA TO BLE" ALBUMIN 1.7 BMI 25.2 RISKS: TONSILLAR CANCER W/ SURGERY, CHEMO AND RADIATION DYSPHAGIA ASPIRATION RISK POOR WOUND HEALING TREATMENT: SPEECH THERAPY CONSULT DIETARY CONSULT NUTRITIONAL SUPPLEMENTS (This form is maintained as a part of the permanent medical record) 2014 [employer]. All Rights Reserved [email or web address] Office: [phone] [facility]
[2017-03-02 04:47] LABS: #Lymphocytes 0.5 thou/uL (1.20-3.40); #Monocytes 0.7 thou/uL (0.11-0.59); #Neutrophils 12.3 thou/uL (1.40-6.50); %Eosinophils 0.3 % (0.0-10.0); %Lymphocytes 3.5 % (21.0-51.0); %Monocytes 5.4 % (0.0-10.0); Hematocrit 38.8 % (42.0-52.0); Red Blood Cell (RBC) Count 4.06 mill/uL (4.70-6.10); White Blood Cell (WBC) Count 13.5 thou/uL (4.8-10.8)
[2017-03-02 04:53] LABS: ALT (SGPT) 18 U/L (8-55); AST (SGOT) 42 U/L (5-34); Alkaline Phosphatase 57 U/L (40-150); Anion Gap 12 mmol/L (10-20); BUN (Urea Nitrogen) 28 mg/dL (8.4-25.7); Bilirubin, Total 2.3 mg/dL (0.2-1.2); Calc. Creatinine Clearance 72 mL/min (70-130); Calcium 8.5 mg/dL (7.8-10.44); Carbon Dioxide 27 mmol/L (23-31); Chloride 95 mmol/L (98-107); Estimated GFR-MDRD 76; Globulin 4.7 g/dL (2.4-3.5); Protein, Total 6.7 g/dL (5.8-8.1)
[2017-03-02] MEDS: Piperacillin/Tazobactam 4.5 GM in Sodium Chloride 0.9% 100 ML IVPB SCH ×3 (05:31→22:46)
[2017-03-02] MEDS: Furosemide 40 MG/4 ML VIAL SLOW IVP SCH ×3 (05:32→15:10)
--- NOTE | 2017-03-02 05:45 | PDOC.PN ---
- Subjective Encounter Start Date: 03/02/17 Encounter Start Time: 05:43 Patient seen and examined. No new complaints. No overnight events - Objective Resuscitation Status: Resuscitation Status FULL:Full Resuscitation MAR Reviewed: Yes Vital Signs & Weight: Vital Signs (12 hours) Temp Pulse Resp BP Pulse Ox 03/02/17 00:22 89 12 03/02/17 00:00 97.5 F L 89 16 117/76 93 L 03/01/17 20:00 98.0 F 101 H 18 147/90 H 94 L 03/01/17 18:56 91 16 95 Weight Admit Weight 168 lb Weight 168 lb I&O: 02/28/17 03/01/17 03/02/17 06:59 06:59 06:59 Intake Total 1829 Balance 1830 19990 Result Diagrams: 03/02/17 03:47 03/02/17 03:47 Phys Exam - Physical Examination Constitutional: NAD HEENT: PERRLA, moist MMs, sclera anicteric Neck: no JVD, supple Respiratory: no wheezing, no rhonchi coarse sound+ Cardiovascular: RRR, no significant murmur, no rub Gastrointestinal: soft, non-tender, positive bowel sounds ascites+ Musculoskeletal: pulses present, edema present Neurological: non-focal, normal sensation, moves all 4 limbs Psychiatric: normal affect, A&O x 3 Skin: no rash, normal turgor Dx/Plan (1) Aspiration pneumonia Code(s): J69.0 - PNEUMONITIS DUE TO INHALATION OF FOOD AND VOMIT Status: Acute (2) Cirrhosis of liver Code(s): K74.60 - UNSPECIFIED CIRRHOSIS OF LIVER Status: Acute Qualifiers: Ascites presence: with ascites (3) Ascites Code(s): R18.8 - OTHER ASCITES Status: Acute Qualifiers: Ascites type: due to alcoholic cirrhosis Qualified Code(s): K70.31 - Alcoholic cirrhosis of liver with ascites (4) Hyponatremia Code(s): E87.1 - HYPO-OSMOLALITY AND HYPONATREMIA Status: Acute (5) Thrombocytopenia Code(s): D69.6 - THROMBOCYTOPENIA, UNSPECIFIED Status: Acute (6) Anemia, normocytic normochromic Code(s): D64.9 - ANEMIA, UNSPECIFIED Status: Chronic (7) Failure to thrive Code(s): [id number] - Status: Chronic (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 SYSTEM Status: Chronic (9) Oropharyngeal dysphagia Code(s): R13.12 - DYSPHAGIA, OROPHARYNGEAL PHASE Status: Acute (10) Chronic hepatitis C Code(s): B18.2 - CHRONIC VIRAL HEPATITIS C Status: Chronic (11) Protein-calorie malnutrition, moderate Code(s): E44.0 - MODERATE PROTEIN-CALORIE MALNUTRITION Status: Chronic - Plan cont current plan of care, continue antibiotics, PT/OT * today wbc got worse, will need to continue iv antibiotics * today will see any change in chest xray * will reduce lasix today * overall pt is stable but not ready for discharge * sodium improving * edema improving * in 24-48 hour, will change to augmentin and levaquin po and consider discharge to swing bed or rehab * medication reviewed as below * symptomatic treatment. Review of Systems - Review of Systems Constitutional: negative: Fever, Chills, Sweats, Weakness, Malaise, Other Eyes: negative: Pain, Vision Change, Conjunctivae Inflammation, Eyelid Inflammation, Redness, Other ENT: negative: Ear Pain, Ear Discharge, Nose Pain, Nose Discharge, Nose Congestion, Mouth Pain, Mouth Swelling, Throat Pain, Throat Swelling, Other Respiratory: Cough. negative: Dry, Shortness of Breath, Hemoptysis, SOB with Excertion, Pleuritic Pain, Sputum, Wheezing Cardiovascular: negative: Chest Pain, Palpitations, Orthopnea, Paroxysmal Noc. Dyspnea, Edema, Light Headedness, Other Gastrointestinal: negative: Nausea, Vomiting, Abdominal Pain, Diarrhea, Constipation, Melena, Hematochezia, Other Genitourinary: negative: Dysuria, Frequency, Incontinence, Hematuria, Retention , Other Musculoskeletal: negative: Neck Pain, Shoulder Pain, Arm Pain, Back Pain, Hand Pain, Leg Pain, Foot Pain, Other Skin: negative: Rash, Lesions, Chi, Bruising, Other - Medications/Allergies Allergies/Adverse Reactions: Allergies Allergy/AdvReac Type Severity Reaction Status Date / Time No Known Allergies Allergy Verified 08/24/16 12:15 Medications: Current Medications Acetaminophen (Tylenol) 650 mg PO Q4H PRN PRN Reason: Headache/Fever or Pain Acetaminophen (Tylenol) 650 mg [place] Q4H PRN PRN Reason: Headache/Fever or Pain Hydrocodone Bitart/Acetaminophen ([place] 5/325) 1 tab PO Q4H PRN PRN Reason: Moderate Pain (4-6) Al Hydroxide/Mg Hydroxide (Maalox) 15 ml PO Q4H PRN PRN Reason: Heartburn or Indigestion Albuterol/Ipratropium (Duoneb) 3 ml NEB [id number] [facility] Last Admin: 03/02/17 00:22 Dose: 3 ml Artificial Tears (Tears Naturale) 0 drop EA EYE PRN PRN PRN Reason: Dry Eyes Bisacodyl (Dulcolax) 10 mg PO DAILYPRN PRN PRN Reason: Constipation Lidocaine HCl 10 ml/ Al (Hydroxide/Mg Hydroxide 30 ml) 0 ml SSW TIDPRN PRN PRN Reason: painful swallowing Last Admin: 03/01/17 04:24 Dose: 1 dose Enoxaparin Sodium (Lovenox) 40 mg SC 0900 [facility] Last Admin: 03/01/17 08:03 Dose: 40 mg Famotidine (Pepcid) 20 mg PO BID [facility] Last Admin: 03/01/17 20:58 Dose: 20 mg Fentanyl (Duragesic) 12 mcg TD Q3D [facility] Last Admin: 02/28/17 21:43 Dose: 12 mcg Furosemide (Lasix) 40 mg SLOW IVP 0600,1400 [facility] Last Admin: 03/02/17 05:32 Dose: 40 mg Gabapentin (Neurontin) 300 mg PO TID [facility] Last Admin: 03/01/17 20:59 Dose: 300 mg Guaifenesin (Robitussin Sf) 200 mg PO Q4H PRN PRN Reason: Cough Guaifenesin (Mucinex) 600 mg PO Q12HR [facility] Last Admin: 03/01/17 20:58 Dose: 600 mg Hydralazine HCl (Apresoline) 10 mg SLOW IVP Q4H PRN PRN Reason: Systolic BP > 180 Levofloxacin 750 mg/ Device 150 mls @ 100 mls/hr IVPB Q24HR [facility] Last Admin: 03/01/17 20:57 Dose: 150 mls Piperacillin Sod/Tazobactam (Sod 4.5 gm/ Sodium Chloride) 100 mls @ 200 mls/hr IVPB Q8HR [facility] Last Admin: 03/02/17 05:31 Dose: 100 mls Vancomycin HCl 750 mg/ Sodium (Chloride) 250 mls @ 250 mls/hr IVPB 1200,2359 [facility] Last Admin: 03/01/17 23:12 Dose: 250 mls Lactulose (Lactulose) 10 gm PO DAILYPRN PRN PRN Reason: Constipation Loperamide HCl (Imodium) 2 mg PO PRN PRN PRN Reason: Diarrhea/Loose Stools Last Admin: 02/28/17 21:39 Dose: 2 mg Loratadine (Claritin) 10 mg PO DAILYPRN PRN PRN Reason: Sinus Symptoms Magnesium Hydroxide (Milk Of Magnesium) 30 ml PO DAILYPRN PRN PRN Reason: Constipation Mineral Oil/White Petrolatum (Eucerin Cream) 0 gm TOP BIDPRN PRN PRN Reason: Dry Skin Miscellaneous Medication (Pharmacy To Dose) 1 each IVPB PRN PRN PRN Reason: PNEUMONIA Stop: 03/08/17 20:28 Ondansetron HCl (Zofran Odt) 4 mg PO Q6H PRN PRN Reason: Nausea/Vomiting Ondansetron HCl (Zofran) 4 mg IVP Q6H PRN PRN Reason: Nausea/Vomiting Phenol (Chloraseptic [place] 180 Ml Bot) 0 ml PO PRN PRN PRN Reason: Sore Throat Sodium Chloride ([place] Nasal [place] 0.65%) 0 ml EA NARE QIDPRN PRN PRN Reason: Nasal Congestion Spironolactone (Aldactone) 100 mg PO DAILY [facility] Last Admin: 03/01/17 08:05 Dose: 100 mg
[2017-03-02] MEDS: Lidocaine 2% Viscous Solution 10 ML, Aluminum & Magnesium Hydroxide 30 ML SSW PRN ×6 (06:08→16:56)
[2017-03-02] MEDS: Famotidine 20 MG TAB PO SCH ×2 (08:16→20:11)
[2017-03-02] MEDS: guaiFENesin ER 600 MG TAB PO SCH ×2 (08:16→20:11)
[2017-03-02] MEDS: Spironolactone 100 MG TAB PO SCH (08:16)
[2017-03-02] MEDS: Gabapentin 300 MG CAP PO SCH ×3 (08:16→20:11)
--- NOTE | 2017-03-02 08:28 | RAD ---
PORTABLE UPRIGHT FRONTAL CHEST RADIOGRAPH: Comparison: 02-26-17 History: Re-evaluate lung parenchyma, pneumonia. FINDINGS: There is gaseous distention of bowel in the upper abdomen. There are increased linear interstitial de nsities noted in bilateral perihilar regions in both upper lobes, similar when compared to the prior exam. No lobar consolidation, large volume pleural effusion or pneumothorax noted. IMPRESSION: Stable nonspecific interstitial infiltrates. POS: [facility]
[2017-03-02] MEDS: Vancomycin HCl 750 MG in Sodium Chloride 0.9% 250 ML 250 ML IVPB SCH (11:59)
[2017-03-02 13:15] LABS: Hep C PCR-Quant HCV Not Detected IU/mL (.)
[2017-03-02] MEDS: Morphine 4 MG/ML VIAL IV PRN (22:46)
[2017-03-02 23:12] LABS: Vancomycin, Trough 23.4 ug/mL
[2017-03-03] MEDS: Vancomycin HCl 750 MG in Sodium Chloride 0.9% 250 ML 250 ML IVPB SCH (01:25)
[2017-03-03] MEDS: Morphine 4 MG/ML VIAL IV PRN ×3 (03:07→23:30)
[2017-03-03] MEDS: Piperacillin/Tazobactam 4.5 GM in Sodium Chloride 0.9% 100 ML IVPB SCH ×3 (05:30→21:59)
[2017-03-03] MEDS: Furosemide 40 MG/4 ML VIAL SLOW IVP SCH ×2 (05:30→15:21)
[2017-03-03] MEDS: Vancomycin HCl 1.25 GM in Sodium Chloride 0.9% 250 ML 250 ML IVPB SCH (09:29)
[2017-03-03] MEDS: Famotidine 20 MG TAB PO SCH ×2 (12:56→20:24)
[2017-03-03] MEDS: Gabapentin 300 MG CAP PO SCH ×3 (12:56→20:24)
[2017-03-03] MEDS: guaiFENesin ER 600 MG TAB PO SCH ×2 (12:56→20:24)
[2017-03-03] MEDS: Spironolactone 100 MG TAB PO SCH (12:57)
--- NOTE | 2017-03-03 14:06 | PDOC.PN ---
- Subjective Encounter Start Date: 03/03/17 Encounter Start Time: 14:03 Mr. De La Torre was seen today in follow-up for dysphagia and aspiration pneumonia. He states that he has significant pain when he tries to swallow. He is breathing ok, and denies abdominal pain. He says this pain just started a few days ago. - Objective Resuscitation Status: Resuscitation Status FULL:Full Resuscitation MAR Reviewed: Yes Vital Signs & Weight: Vital Signs (12 hours) Temp Pulse Resp BP Pulse Ox 03/03/17 11:51 100 20 95 03/03/17 08:00 97.6 F 100 20 92 L 03/03/17 07:16 97.6 F 105 H 16 136/78 92 L 03/03/17 07:07 96 20 94 L Weight Admit Weight 168 lb Weight 168 lb I&O: 03/02/17 03/03/17 03/04/17 06:59 06:59 06:59 Intake Total 1630 1690 Balance 1630 1690 Result Diagrams: 03/02/17 03:47 03/02/17 03:47 Phys Exam - Physical Examination HEENT: PERRLA Respiratory: wheezing present + wheezing and rhonchi throughout Cardiovascular: RRR, no significant murmur Gastrointestinal: soft, non-tender, positive bowel sounds + adbominal distention Musculoskeletal: edema present 2-3 + pitting edema bilaterally Dx/Plan (1) Aspiration pneumonia Code(s): J69.0 - PNEUMONITIS DUE TO INHALATION OF FOOD AND VOMIT Status: Acute (2) Ascites Code(s): R18.8 - OTHER ASCITES Status: Acute Qualifiers: Ascites type: due to alcoholic cirrhosis Qualified Code(s): K70.31 - Alcoholic cirrhosis of liver with ascites (3) Oropharyngeal dysphagia Code(s): R13.12 - DYSPHAGIA, OROPHARYNGEAL PHASE Status: Acute (4) Cirrhosis of liver Code(s): K74.60 - UNSPECIFIED CIRRHOSIS OF LIVER Status: Acute Qualifiers: Ascites presence: with ascites (5) Failure to thrive Code(s): [id number] - Status: Chronic (6) Protein-calorie malnutrition, moderate Code(s): E44.0 - MODERATE PROTEIN-CALORIE MALNUTRITION Status: Chronic (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
[2017-03-03] MEDS ORDERED: D10W AA 8.5% With Lytes 1000 ML BAG IV SCH (14:15)
[2017-03-03] MEDS ORDERED: PPN Hyperalimentation 1,000 ML IV SCH (14:30)
[2017-03-04] MEDS: Furosemide 40 MG/4 ML VIAL SLOW IVP SCH ×2 (06:02→17:49)
[2017-03-04] MEDS: Piperacillin/Tazobactam 4.5 GM in Sodium Chloride 0.9% 100 ML IVPB SCH ×2 (06:02→17:49)
[2017-03-04] MEDS ORDERED: Phytonadione 10 MG/ML AMP SC SCH (08:00)
[2017-03-04 08:12] LABS: Prothrombin Time 22.9 SEC (12.0-14.7)
--- NOTE | 2017-03-04 08:33 | CON ---
DATE OF CONSULTATION: 03/03/2017 The patient was seen last night, just being dictated this morning. CHIEF COMPLAINT: Inability to swallow. HISTORY OF PRESENT ILLNESS: Mr. De La Torre is a 77-year-old man with a history of hepatitis C, cirrhos is, status post cure of the hepatitis C with Harvoni last year, who was diagnosed with laryngeal canc er in 08/2016. He has since been treated with chemotherapy and radiation at [facility] [place]. His las t radiation dose was 8 weeks ago. He has had progressive worsening of his swallowing over the last 8 weeks. He for the last several months could only get down liquids and pureed foods; however, for th e last week he has been unable to swallow liquids well and he had a swallowing study that showed high risk for aspiration. GI was consulted to evaluate if gastrostomy tube is an option. He has had ons et of ascites over the last 3-4 weeks which has complicated this factor. He has been miserable with discomfort with swallowing for the last 8 weeks. He does get burning pain in his throat as he attemp ts to swallow. During this time, he has had gradual worsening of abdominal distention. He has been on furosemide 20 mg and spironolactone 100 mg for the last couple years since he had an episode of as cites in the past that did resolve with the diuretics. In light of the severe trouble swallowing he became dehydrated and his diuretics were held. As his diuretics have been held and his albumin and n utritional status has worsened his ascites has now returned. PAST MEDICAL HISTORY: Cirrhosis of the liver, laryngeal cancer. He had hepatitis C which was treate d with Harvoni last year and he cured this virus with the treatment. PAST SURGICAL HISTORY: Knee replacement, hernia repair, tonsillectomy. FAMILY HISTORY: Negative for GI malignancies. SOCIAL HISTORY: He did drink in the past. He states that he quit drinking beer a year ago. 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 ALLERGIES: No known drug allergies. MEDICATIONS AT HOME: DuoNeb inhalers, TPN, Pepcid, fentanyl patch. He is currently on Lasix IV 20 m g twice daily, gabapentin 300 mg 3 times a day, Levofloxacin 750 mg daily, Zosyn q.8h. 4.5 grams, va ncomycin. REVIEW OF SYSTEMS: Negative x10 systems reviewed except as stated in the history of present illness. PHYSICAL EXAMINATION: VITAL SIGNS: Temperature 97.7, pulse 102, blood pressure 123/79. GENERAL: He is in no acute distress. He is alert and oriented x3. HEENT: Eyes have no scleral icterus. Oropharynx has poor dentition and some limited mobility of how wide he can open his mouth. His skin is excoriated from the radiation. LUNGS: Clear to auscultation bilaterally. HEART: Tachycardic S1, S2. ABDOMEN: Distended with ascites, but currently he is not tense. His showed me pictures of his abdomen 2 days ago and it was much more distended then and the ascites seems to be somewhat better si nce starting the furosemide. EXTREMITIES: 2+ pitting lower extremity edema. He also has edema of the upper extremities. LABORATORY: White blood cell count 13.5, hemoglobin 12.4, platelets 139. INR 1.7. Creatinine 0.96. Sodium 130, bilirubin 2.3, AST 42, ALT 18, alkaline phosphatase 57, albumin 2.0. Hepatitis C RNA l evel is undetectable. IMPRESSION: 1. Cirrhosis of liver. He is decompensated with ascites and increased bilirubin and elevated INR an d severe hypoalbuminemia. The elevated INR and low albumin are likely worsened by the severe malnutr ition. Hopefully, the anasarca and ascites would improve with nutritional supplementation. 2. 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 He is not a candidate for percutaneous endosc opic gastrostomy tube placement due to the ascites. Dr. Pérez plans to do a laryngoscopy today and hopefully placement of a Dobbhoff tube through which feeds could be started. 3. Ascites and anasarca. He has been restarted on furosemide. We will need to follow his renal fun ction closely. He is also on spironolactone 100 mg daily. Ultrasound guided diagnostic paracentesis can be performed to evaluate for spontaneous bacterial peritonitis. He is already on broad spectrum antibiotics and if he did have spontaneous bacterial peritonitis he is symptomatically improving wit h antibiotics. Otherwise, he does report the ascites is improving, which could be from the diuretics and nutritional support as well. 4. He is due for hepatoma screening with ultrasound and alpha fetoprotein. 5. Immunity to hepatitis A and hepatitis B will be checked with antibodies to total hepatitis A and hepatitis B surface antibody. If he does not have immunity he should be vaccinated. RECOMMENDATIONS: 1. Dobbhoff tube placement today. The nutritional support will likely be the most important factor in treating his anasarca and ascites. 2. He is on furosemide and spironolactone. We will need to follow his renal function. He has also had hyponatremia which will be monitored. 3. We will follow trend of the labs. 4. We will give a dose of vitamin K.
[2017-03-04 08:37] LABS: ALT (SGPT) 16 U/L (8-55); AST (SGOT) 49 U/L (5-34); Alkaline Phosphatase 57 U/L (40-150); Anion Gap 10 mmol/L (10-20); BUN (Urea Nitrogen) 36 mg/dL (8.4-25.7); Bilirubin, Total 2.2 mg/dL (0.2-1.2); Calc. Creatinine Clearance 77 mL/min (70-130); Calcium 8.6 mg/dL (7.8-10.44); Carbon Dioxide 27 mmol/L (23-31); Chloride 100 mmol/L (98-107); Estimated GFR-MDRD 83; Globulin 4.2 g/dL (2.4-3.5)
[2017-03-04 09:08] LABS: #Basophils 0.1 thou/uL (0.0-0.2); #Lymphocytes 1.2 thou/uL (1.20-3.40); #Monocytes 0.4 thou/uL (0.11-0.59); #Neutrophils 11.7 thou/uL (1.40-6.50); %Basophils 0.4 % (0.0-1.0); %Eosinophils 0.1 % (0.0-10.0); %Lymphocytes 8.7 % (21.0-51.0); Hematocrit 38.4 % (42.0-52.0); Mean Platelet Volume 7.2 fL (7.4-10.4); Red Blood Cell (RBC) Count 3.95 mill/uL (4.70-6.10); Target Cells SLIGHT = 2-5 cells (100X) (0-1/hpf); White Blood Cell (WBC) Count 13.3 thou/uL (4.8-10.8)
[2017-03-04] MEDS: Famotidine 20 MG TAB PO SCH ×2 (10:56→20:34)
[2017-03-04] MEDS: Gabapentin 300 MG CAP PO SCH ×3 (10:56→20:34)
[2017-03-04] MEDS: guaiFENesin ER 600 MG TAB PO SCH ×2 (10:57→20:36)
[2017-03-04] MEDS: Vancomycin HCl 1.25 GM in Sodium Chloride 0.9% 250 ML 250 ML IVPB SCH (10:57)
[2017-03-04] MEDS: Spironolactone 100 MG TAB PO SCH (10:57)
--- NOTE | 2017-03-04 11:06 | ULT ---
ULTRASOUND GUIDED DIAGNOSTIC PARACENTESIS: CLINICAL INDICATION: Ascites. PROCEDURE: After informed consent had been obtained, the patient was escorted to the ultrasound suite and placed in a supine position. The abdomen was imaged which revealed adequate ascites for the procedure. Th e skin of the abdomen was then prepped and draped in the standard sterile fashion and the skin surfac e, subcutaneous tissues, and peritoneal lining of the abdomen were anesthetized with 1% Lidocaine buf fered with sodium bicarbonate. A left lower quadrant approach was selected. A small skin incision w as made at the site of topical anesthesia. Subsequently, under real-time ultrasound guidance a [employer] catheter was advanced through the incision site into the peritoneal cavity. Ascites was present at t he catheter hub. The catheter was then secured to vacuum sealed sterile containers, via sterile tubi ng and subsequently 12 L of clear yellow ascites was drained from the patient. The catheter was then removed from the patient. The patient tolerated the procedure well without evidence of complication . Postprocedure imaging revealed no complication and interval reduction in volume of ascites. The p atient was monitored by a radiology nurse and was stable in condition. IMPRESSION: Technically successful ultrasound-guided paracentesis, as above. Specimen was sent to the laboratory for further analysis. Results are pending. POS: [facility]
[2017-03-04 11:26] LABS: BF Color Yellow; BF WBC/Nonhematics Ct. - Manua 70 /cumm
[2017-03-04 11:27] LABS: BF Reference Range Comment Note:
[2017-03-04 12:24] LABS: Number Cells Counted-Fluids 100
--- NOTE | 2017-03-04 12:28 | PDOC.PN ---
- Subjective Encounter Start Date: 03/04/17 Encounter Start Time: 12:26 Mr. De La Torre was seen today in follow-up or dysphagia, and aspiration pneumonia. He is still having some pain when he swallows. He denies any chest pain or shortness of breath. - Objective Resuscitation Status: Resuscitation Status FULL:Full Resuscitation MAR Reviewed: Yes Vital Signs & Weight: Vital Signs (12 hours) Temp Pulse Resp BP BP Pulse Ox 03/04/17 12:23 102 H 18 99 03/04/17 08:00 98.1 F 101 H 18 117/72 94 L 03/04/17 06:50 99 18 100 03/04/17 04:00 98.0 F 99 18 118/72 100 03/04/17 01:24 95 16 94 L Weight Admit Weight 168 lb Weight 168 lb I&O: 03/03/17 03/04/17 03/05/17 06:59 06:59 06:59 Intake Total 1690 2175 Balance 1690 2175 Result Diagrams: 03/04/17 07:52 03/04/17 07:52 Phys Exam - Physical Examination HEENT: PERRLA Respiratory: wheezing present + mild expiratory wheeze, much improved from yesterday Cardiovascular: RRR, no significant murmur Gastrointestinal: soft, non-tender, positive bowel sounds Musculoskeletal: no edema Dx/Plan (1) Aspiration pneumonia Code(s): J69.0 - PNEUMONITIS DUE TO INHALATION OF FOOD AND VOMIT Status: Acute (2) Ascites Code(s): R18.8 - OTHER ASCITES Status: Acute Qualifiers: Ascites type: due to alcoholic cirrhosis Qualified Code(s): K70.31 - Alcoholic cirrhosis of liver with ascites (3) Oropharyngeal dysphagia Code(s): R13.12 - DYSPHAGIA, OROPHARYNGEAL PHASE Status: Acute (4) Cirrhosis of liver Code(s): K74.60 - UNSPECIFIED CIRRHOSIS OF LIVER Status: Acute Qualifiers: Ascites presence: with ascites (5) Failure to thrive Code(s): [id number] - Status: Chronic (6) Protein-calorie malnutrition, moderate Code(s): E44.0 - MODERATE PROTEIN-CALORIE MALNUTRITION Status: Chronic (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 He is not a candidate for PEG as previously noted, but he would benefit from a therapeutic paracentesis which has been ordered. He has already had the diagnostic one today * Dysphagia- likely from effects of radiation from treatment of tonsilar cancer - for ENT evaluation today * Will place DHT after ENT evaluation * Continue NPO status for now .
--- NOTE | 2017-03-04 13:05 | ULT ---
EXAM: ABDOMEN ULTRASOUND: HISTORY: Evaluate for hepatoma. Cirrhosis. Comparison None. TECHNIQUE: Utilizing a multihertz transducer, sonographic imaging of the abdomen was performed in the longitudin al and transverse plane. FINDINGS: There is nodularity with regards to the margin of the liver. The liver is diminutive measuring 12.5 cm. Cirrhotic changes are noted. No obvious hepatic mass. There is free fluid in the abdomen. Common bile duct is dilated measuring 0.8 cm. Gallbladder wall thickness is upper normal. There is s ludge as well as stones in the lumen of the gallbladder. Negative Jaquez's sign is reported. Pancre as is obscured by bowel gas. The right kidney has a normal echotexture measuring 5.4 x 5.0 x 10.3 cm. IMPRESSION: 1. Cirrhotic change of the liver. 2. No definite evidence of cholecystitis. If there is concern, consider HIDA scan. 3. Ascites. 4. No sonographic evidence of hepatic masses. If there is concern for hepatoma, liver mass protocol CT or abdomen MRI are recommended. POS: [facility]
--- NOTE | 2017-03-04 17:42 | RAD ---
ABDOMEN ONE VIEW 03/04/17 HISTORY: Dobhoff tube placement. COMPARISON: None. FINDINGS: There is a tip of what appears to be a weighted feeding tube at the distal esophagus. IMPRESSION: Likely a Dobhoff tube tip near the distal esophagus. POS: [facility]
--- NOTE | 2017-03-04 17:57 | RAD ---
ABDOMEN ONE VIEW 03/04/17 HISTORY: Dobhoff placement. COMPARISON: Abdomen one view same day. FINDINGS: Dobhoff tube has been advanced with tip now in the gastric body. IMPRESSION: Dobhoff tube tip in gastric body. Recommend advancing. POS: [facility]
[2017-03-04] MEDS: Amoxicillin/Potassium Clav 600 mg/5 ml Oral Suspension PER TUBE SCH (20:35)
--- NOTE | 2017-03-04 20:44 | PRG ---
DATE OF SERVICE: 03/04/2017 SUBJECTIVE: Mr. De La Torre had his Dobbhoff tube placed today. He is tolerating feeds well so far. Dk wiggins has no nausea or vomiting. No abdominal pain. He did have diagnostic paracentesis today. PHYSICAL EXAMINATION: VITAL SIGNS: Temperature 97.3, pulse 102, blood pressure 123/76. GENERAL: He is in no acute distress, alert and oriented x3. LUNGS: Clear to auscultation bilaterally. HEART: Regular rate and rhythm. ABDOMEN: Soft, minimally distended. Bowel sounds are present. EXTREMITIES: 2+ pitting lower extremity edema. IMPRESSION: 1. Dysphagia with high aspiration risk, status post Dobbhoff tube placement today. 2. History of tonsillar cancer, status post radiation and chemotherapy. The last radiation was 8 we eks ago. 3. Cirrhosis decompensated with ascites, elevated bilirubin, elevated INR, and severe hypoalbuminemi a. 4. Ascites and anasarca. 5. No evidence of liver masses seen by ultrasound. Alpha-fetoprotein was normal. 6. Diagnostic paracentesis today shows that he does not have ongoing SBP now. If he did have sponta neous bacterial peritonitis when he presented, then he has responded well to antibiotics. Overall, I think the worsening ascites is more of a function of the worsening hypoalbuminemia which is a combin ation of liver disease and dietary factors. RECOMMENDATIONS: 1. Continue tube feeds. 2. Monitor his electrolytes and phosphorus levels.
[2017-03-04] MEDS ORDERED: Loratadine 10 MG TAB PER TUBE PRN (21:30)
[2017-03-04] MEDS ORDERED: Diabetic Tussin 200 MG/10 ML UDCUP PER TUBE PRN (21:30)
[2017-03-04] MEDS ORDERED: Milk Of Magnesia 30 ML UDCUP PER TUBE PRN (21:30)
[2017-03-04] MEDS ORDERED: Loperamide HCl 2 MG CAP PER TUBE PRN (21:30)
[2017-03-04] MEDS ORDERED: Mag-Al 1200 mg/1200 mg/30 ML UDCUP PER TUBE PRN (21:30)
[2017-03-04] MEDS ORDERED: Acetaminophen 325 MG TAB PER TUBE PRN (21:30)
[2017-03-04] MEDS ORDERED: Ondansetron ODT 4 MG TAB PER TUBE PRN (21:30)
[2017-03-05 04:29] LABS: Prothrombin Time 22.5 SEC (12.0-14.7)
[2017-03-05 04:45] LABS: ALT (SGPT) 16 U/L (8-55); AST (SGOT) 48 U/L (5-34); Alkaline Phosphatase 64 U/L (40-150); Anion Gap 11 mmol/L (10-20); BUN (Urea Nitrogen) 43 mg/dL (8.4-25.7); Bilirubin, Total 1.8 mg/dL (0.2-1.2); Calc. Creatinine Clearance 72 mL/min (70-130); Calcium 8.7 mg/dL (7.8-10.44); Carbon Dioxide 27 mmol/L (23-31); Chloride 100 mmol/L (98-107); Estimated GFR-MDRD 76; Globulin 4.2 g/dL (2.4-3.5); Phosphorus 2.4 mg/dL (2.3-4.7)
[2017-03-05] MEDS: Furosemide 20 MG TAB PER TUBE SCH ×2 (06:19→16:35)
[2017-03-05] MEDS ORDERED: guaiFENesin ER 600 MG TAB PER TUBE SCH (09:00)
[2017-03-05] MEDS: Gabapentin 300 MG CAP PO SCH ×3 (09:29→21:45)
[2017-03-05] MEDS: Diabetic Tussin 200 MG/10 ML UDCUP PER TUBE SCH ×2 (09:30→21:44)
[2017-03-05] MEDS: Famotidine 20 MG TAB PER TUBE SCH ×2 (09:30→21:45)
--- NOTE | 2017-03-05 11:46 | PRG ---
DATE OF SERVICE: 03/05/2017 SUBJECTIVE: Mr. De La Torre is tolerating his Dobbhoff tube feeds well. He is anxious that he might ac cidentally pulled the tube out of his nose, but otherwise no acute complaints. LABORATORY DATA: White blood cell count 13.3, hemoglobin 12.1, platelets 86, INR 1.9, bilirubin 1.8, AST 48, ALT 16, alkaline phosphatase 64, albumin 1.8, and phosphorus 2.4. IMPRESSION AND PLAN: 1. Severe dysphagia, status post Dobbhoff tube placement. He has radiation laryngitis and esophagit is. Last dose of radiation was 8 weeks ago for tonsillar cancer. 2. Decompensated cirrhosis with ascites, elevated bilirubin, elevated INR, severe hypoalbuminemia. 3. Ascites and anasarca. He is on spironolactone and furosemide. The primary treatment is to get h is nutritional level and albumin levels up. This was explained to him and they will take a while to get his protein levels up. He is getting continuous feeds at this point. 4. Aspiration pneumonia on multiple antibiotics.
[2017-03-05] MEDS: Spironolactone 100 MG TAB PER TUBE SCH (11:47)
[2017-03-05] MEDS: Amoxicillin/Potassium Clav 600 mg/5 ml Oral Suspension PER TUBE SCH ×2 (11:52→21:45)
--- NOTE | 2017-03-05 15:53 | RAD ---
CHEST ONE VIEW: 03/05/17 COMPARISON: 03/02/17 study. Heart size is within normal limits. Dobhoff feeding tube is seen with the tip in the fundus region of the stomach. There are patchy interstitial alveolar infiltrative lung changes seen. Some of the cornell ges in the right upper lobe are slightly less pronounced than the prior exam. Left perihilar and righ t lower lobe changes appear slightly worsened. IMPRESSION: Multifocal pneumonia. Changes are slightly worsened as compared to the prior exam. POS: [facility]
--- NOTE | 2017-03-05 16:16 | PDOC.PN ---
- Subjective Encounter Start Date: 03/05/17 Encounter Start Time: 16:14 Mr. De La Torre was seen today in follow-up. He feels like the DHT is making his nose and throat " tight". He denies any abdominal pain. He denies feeling short of breath. He tried participating in PT, but was only able to make it to the edge of the bed, and then was utterly exhausted, and stopped. - Objective Resuscitation Status: Resuscitation Status FULL:Full Resuscitation MAR Reviewed: Yes Vital Signs & Weight: Vital Signs (12 hours) Temp Pulse Resp BP Pulse Ox 03/05/17 12:16 99 18 94 L 03/05/17 11:00 97.3 F L 109 H 16 110/71 87 L 03/05/17 08:42 97.3 F L 111 H 20 118/69 88 L 03/05/17 08:00 97.3 F L 111 H 20 03/05/17 07:17 108 H 20 92 L Weight Admit Weight 168 lb Weight 168 lb I&O: 03/04/17 03/05/17 03/06/17 06:59 06:59 06:59 Intake Total 2175 1005 100 Balance 2175 1005 100 Result Diagrams: 03/04/17 07:52 03/05/17 03:23 Additional Labs: Accuchecks 03/05/17 05:05 POC Glucose 149 H Phys Exam - Physical Examination HEENT: PERRLA + scattered rhonchi Cardiovascular: RRR, no significant murmur Gastrointestinal: soft distended, non-tender Musculoskeletal: edema present 2+ pitting edema Dx/Plan (1) Aspiration pneumonia Code(s): J69.0 - PNEUMONITIS DUE TO INHALATION OF FOOD AND VOMIT Status: Acute (2) Ascites Code(s): R18.8 - OTHER ASCITES Status: Acute Qualifiers: Ascites type: due to alcoholic cirrhosis Qualified Code(s): K70.31 - Alcoholic cirrhosis of liver with ascites (3) Oropharyngeal dysphagia Code(s): R13.12 - DYSPHAGIA, OROPHARYNGEAL PHASE Status: Acute (4) Cirrhosis of liver Code(s): K74.60 - UNSPECIFIED CIRRHOSIS OF LIVER Status: Acute Qualifiers: Ascites presence: with ascites (5) Failure to thrive Code(s): [id number] - Status: Chronic (6) Protein-calorie malnutrition, moderate Code(s): E44.0 - MODERATE PROTEIN-CALORIE MALNUTRITION Status: Chronic (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 He is tolerating this so far * Aspiration- he has not been wanting to keep the head of the bed elevated- This was discussed, and we repositioned him, and elevated the HOB * Continue Augmentin * Cirrhosis- this is compensated, and he does not have finding in the ascetic fluid to suggest SBP * GI recommendations noted, and will monitor electrolytes and Phosphorus to avoid a re-feeding syndrome * Continue supportive care. * PT as tolerated
[2017-03-06] MEDS: Gabapentin 300 MG CAP PO SCH ×3 (07:52→23:02)
[2017-03-06] MEDS: Famotidine 20 MG TAB PER TUBE SCH ×2 (07:52→23:00)
[2017-03-06] MEDS: Diabetic Tussin 200 MG/10 ML UDCUP PER TUBE SCH ×2 (07:52→23:02)
[2017-03-06] MEDS: Amoxicillin/Potassium Clav 600 mg/5 ml Oral Suspension PER TUBE SCH ×2 (09:49→23:00)
--- NOTE | 2017-03-06 12:56 | PDOC.PN ---
- Subjective Encounter Start Date: 03/06/17 Encounter Start Time: 12:54 Mr. De La Torre was seen today in follow-up. He is complaining of his mouth feeling dry. He denies feeling short of breath, and denies chest pain. - Objective Resuscitation Status: Resuscitation Status FULL:Full Resuscitation MAR Reviewed: Yes Vital Signs & Weight: Vital Signs (12 hours) Temp Pulse Resp BP Pulse Ox 03/06/17 12:17 105 H 18 91 L 03/06/17 11:32 97.7 F 111 H 20 125/76 93 L 03/06/17 08:00 97.8 F 117 H 24 H 119/76 92 L 03/06/17 07:09 101 H 20 92 L 03/06/17 05:01 112 H 22 H 90 L 03/06/17 04:00 97.9 F 112 H 24 H 121/71 87 L Weight Admit Weight 168 lb Weight 168 lb I&O: 03/05/17 03/06/17 03/07/17 06:59 06:59 06:59 Intake Total 1005 1380 Balance 1005 1380 Result Diagrams: 03/04/17 07:52 03/05/17 03:23 Phys Exam - Physical Examination HEENT: PERRLA Respiratory: no wheezing + rhonchi bilaterally Cardiovascular: RRR, no significant murmur Gastrointestinal: soft, non-tender, positive bowel sounds Musculoskeletal: edema present 2+ pitting edema Dx/Plan (1) Aspiration pneumonia Code(s): J69.0 - PNEUMONITIS DUE TO INHALATION OF FOOD AND VOMIT Status: Acute (2) Ascites Code(s): R18.8 - OTHER ASCITES Status: Acute Qualifiers: Ascites type: due to alcoholic cirrhosis Qualified Code(s): K70.31 - Alcoholic cirrhosis of liver with ascites (3) Oropharyngeal dysphagia Code(s): R13.12 - DYSPHAGIA, OROPHARYNGEAL PHASE Status: Acute (4) Cirrhosis of liver Code(s): K74.60 - UNSPECIFIED CIRRHOSIS OF LIVER Status: Acute Qualifiers: Ascites presence: with ascites (5) Failure to thrive Code(s): [id number] - Status: Chronic (6) Protein-calorie malnutrition, moderate Code(s): E44.0 - MODERATE PROTEIN-CALORIE MALNUTRITION Status: Chronic (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 * Cirrhosis- compensated * Will check renal function in the AM as well as his INR- possible therapueatic paracentesis in the AM if this is recommended by GI
[2017-03-06 19:56] LABS: Oxyhemoglobin 91.7 % (94.0-97.0); Sodium 138 mmol/L (135-148)
[2017-03-06 19:57] LABS: Mode VM; Modified Allen's Test POSITIVE
--- NOTE | 2017-03-06 20:08 | PDOC.PN ---
- Subjective Encounter Start Date: 03/06/17 Encounter Start Time: 20:00 CTSP due to hypoxia Pt c/o some dyspnea - Objective Resuscitation Status: Resuscitation Status FULL:Full Resuscitation Vital Signs & Weight: Vital Signs (12 hours) Temp Pulse Resp BP Pulse Ox 03/06/17 18:53 111 H 20 93 L 03/06/17 16:30 97.7 F 115 H 22 H 122/83 93 L 03/06/17 12:17 105 H 18 91 L 03/06/17 11:32 97.7 F 111 H 20 125/76 93 L Weight Admit Weight 168 lb Weight 168 lb I&O: 03/05/17 03/06/17 03/07/17 06:59 06:59 06:59 Intake Total 1005 1380 Output Total 450 Balance 1005 1380 -450 Result Diagrams: 03/04/17 07:52 03/05/17 03:23 Phys Exam - Physical Examination Constitutional: NAD HEENT: moist MMs Neck: no JVD diminished breath sounds, positive crackles, no rhonchi, positive wheezing Cardiovascular: RRR no murmur, no rubs, no gallop distended, nttp, no guarding, positive ascites 3 plus edema Neurological: non-focal follows commands Psychiatric: normal affect -: positive echymoses Dx/Plan - Plan * . Pt is 77 yrs old male 1. Hypoxia + Wheezing: Worsening compared to before Will start patient on breathing tretaments and IV steroids Continue ventmask Reviewed ABG. Will consult pulm/ccm to evaluate patient 2. Pulmonary edema: Will start iv lasix 40mg q12hrs Strict I&o Place garcia cath 3. Ascites + Aspiration pneumonia + Hyponatremia + PEM: Continue current treatment Will transfer pt to ICU for close monitoring D/W Pt & RN
[2017-03-06] MEDS: Furosemide 40 MG/4 ML VIAL SLOW IVP SCH (20:22)
--- NOTE | 2017-03-06 21:26 | RAD ---
CHEST 1 VIEW: Date: 03/06/17 HISTORY: Low O2 sats. Aspiration pneumonia. COMPARISON: Abdomen and chest radiograph from prior day. FINDINGS: Dobbhoff tube tip is in the gastric body. Worsening perihilar opacities. No pneumothorax. Small left effusion. IMPRESSION: 1. Dobbhoff tube tip gastric body. 2. Worsening alveolar opacities throughout both lungs concerning for edema or pneumonia. Continued f ollow-up recommended. POS: [facility]
[2017-03-06] MEDS: methylPREDNISolone Sod Succ/PF 125 MG/2 ML VIAL IVP SCH (23:20)
--- NOTE | 2017-03-06 23:52 | PRG ---
DATE OF SERVICE: 03/06/2017 SUBJECTIVE: Mr. De La Torre has been tolerating his tube feeds. He had a small bowel movement yesterda y. OBJECTIVE: VITAL SIGNS: Temperature 97.7, pulse 115, blood pressure 122/83. GENERAL: He is in no acute distress. He is awake and alert. LUNGS: Have coarse breath sounds bilaterally. HEART: Tachycardic S1, S2. ABDOMEN: Soft, but mildly distended. Bowel sounds are present. EXTREMITIES: 2+ pitting lower extremity edema. IMPRESSION: 1. Severe dysphagia, status post radiation for laryngeal cancer. A Dobbhoff tube has been placed. 2. Decompensated cirrhosis with ascites, elevated bilirubin, elevated INR, severe hypoalbuminemia. 3. Ascites and anasarca. He is on spironolactone and furosemide. His poor nutrition is worsening t his condition. The primary treatment for now is to improve his serum protein levels for nutritional supplementation, which he is receiving through the Dobhoff tube. 4. Aspiration pneumonia on multiple antibiotics. RECOMMENDATIONS: 1. Continued Dobbhoff tube feeds. 2. He is being treated by the primary service for pneumonia and pulmonary edema.
[2017-03-07 04:42] LABS: Anion Gap 11 mmol/L (10-20); BUN (Urea Nitrogen) 49 mg/dL (8.4-25.7); Calc. Creatinine Clearance 81 mL/min (70-130); Calcium 9.4 mg/dL (7.8-10.44); Carbon Dioxide 29 mmol/L (23-31); Chloride 100 mmol/L (98-107); Estimated GFR-MDRD 83
[2017-03-07 04:46] LABS: Hematocrit 43.9 % (42.0-52.0); Mean Platelet Volume 7.7 fL (7.4-10.4); Neutrophil 98 % (42-75); Red Blood Cell (RBC) Count 4.46 mill/uL (4.70-6.10); White Blood Cell (WBC) Count 15.2 thou/uL (4.8-10.8)
[2017-03-07] MEDS: methylPREDNISolone Sod Succ/PF 125 MG/2 ML VIAL IVP SCH (06:14)
--- NOTE | 2017-03-07 07:32 | PDOC.PN ---
- Subjective Encounter Start Date: 03/07/17 Encounter Start Time: 07:31 Mr. De La Torre was seen today in follow-up of aspiration pneumonia, and severe malnutrition. He does not have any complaints this morning except that he is hungry. He denies feeling short of breath. He denies chest pain - Objective Resuscitation Status: Resuscitation Status FULL:Full Resuscitation MAR Reviewed: Yes Vital Signs & Weight: Vital Signs (12 hours) Temp Pulse Resp BP Pulse Ox 03/07/17 07:04 99 03/07/17 07:02 106 H 18 99 03/07/17 01:01 100 03/07/17 01:00 99 03/06/17 23:00 99 03/06/17 22:04 100 03/06/17 20:55 97.9 F 120 H 26 H 100 03/06/17 19:44 97.6 F 120 H 16 124/84 90 L Weight Admit Weight 168 lb Weight 175 lb 0.752 oz Most Recent Monitor Data Heart Rate from ECG 112 NIBP 108/67 NIBP BP-Mean 72 Respiration from ECG 16 SpO2 98 I&O: 03/06/17 03/07/17 03/08/17 06:59 06:59 06:59 Intake Total 1380 Output Total 1125 Balance 1380 -1125 Result Diagrams: 03/07/17 03:58 03/07/17 03:58 Phys Exam - Physical Examination HEENT: PERRLA + rhonchi bilaterally, no rales Cardiovascular: RRR, no significant murmur Gastrointestinal: soft + abdominal distention Musculoskeletal: edema present 2+ pitting edema Dx/Plan (1) Aspiration pneumonia Code(s): J69.0 - PNEUMONITIS DUE TO INHALATION OF FOOD AND VOMIT Status: Acute (2) Ascites Code(s): R18.8 - OTHER ASCITES Status: Acute Qualifiers: Ascites type: due to alcoholic cirrhosis Qualified Code(s): K70.31 - Alcoholic cirrhosis of liver with ascites (3) Oropharyngeal dysphagia Code(s): R13.12 - DYSPHAGIA, OROPHARYNGEAL PHASE Status: Acute (4) Cirrhosis of liver Code(s): K74.60 - UNSPECIFIED CIRRHOSIS OF LIVER Status: Acute Qualifiers: Ascites presence: with ascites (5) Failure to thrive Code(s): [id number] - Status: Chronic (6) Protein-calorie malnutrition, moderate Code(s): E44.0 - MODERATE PROTEIN-CALORIE MALNUTRITION Status: Chronic (7) 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 - NEOPLASM OF UNSPECIFIED BEHAVIOR OF DIGESTIVE SYSTEM Status: Chronic - Plan * Pneumonia- Will change his antibiotics back to IV Zosyn, now that he has IV access again * His oxygen saturations have returned to 99% on NC * Critical Care has been consulted * Will resume tube feeds * Will check renal function, and INR * Cirrhosis- compensated * Dysphagia- plan is to continue DHT feeding a few days and re-assess swallowing. Hopefully he will be stronger by then, and the radiation irritation in his throat will have improved enough for him to take in nutrition by mouth. ( He is not a candidate for PEG tube or G-tube due to ascites) * I have discussed his overall prognosis with the patient and his brother Omer who is the MPOA. They have agreed to talk to Palliative care team regarding goals of care and code status
[2017-03-07 07:45] LABS: Prothrombin Time 19.4 SEC (12.0-14.7)
--- NOTE | 2017-03-07 09:52 | CON ---
DATE OF CONSULTATION: 03/07/2017 CONSULTING PHYSICIAN: Dr. Bentley REASON FOR CONSULTATION: Shortness of breath and aspiration pneumonia. HISTORY OF PRESENT ILLNESS: This man is a 77-year-old who was initially hospitalized on 02/25/2017. 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 He has received radiation and chemotherapy. He is chronically aspirating and has had the development of aspiration pneumonitis. He became hypoxic last night and had to be transferred to the Critical Care Unit. He says he feels s omewhat better this morning. I am told that he has ascites from hepatitis C and is yet to have a par acentesis. PAST MEDICAL HISTORY: 1. Tonsillar cancer, now status post radiation and chemotherapy. 2. Hepatitis C. 3. Cirrhosis of the liver. PAST SURGICAL HISTORY: 1. Right knee replacement. 2. Hernia repair. 3. Tonsillectomy. SOCIAL HISTORY: Currently not smoking, using alcohol use or using recreational drugs. FAMILY MEDICAL HISTORY: Unremarkable. ALLERGIES: None. MEDICATIONS PRIOR TO ADMISSION: He was on a fentanyl patch, gabapentin, Lasix, and spironolactone. CURRENT INPATIENT MEDICATIONS: Acetaminophen, DuoNeb, Pepcid, Duragesic, Lasix, Neurontin, Apresolin e, lactulose, Imodium, Claritin, Zofran, and Aldactone. REVIEW OF SYSTEMS: He complains of difficulty swallowing. He has difficulty talking. He says that he has some abdominal pain from distention and some shortness of breath. PHYSICAL EXAMINATION: VITAL SIGNS: Temperature 97.9, pulse 112, blood pressure 108/67, O2 sat 98%. HEENT: He has bitemporal wasting. Oropharynx, erythema in the back of the throat. NECK: He has a surgical scar along his left side. He has severe muscle wasting in his neck. LUNGS: Coarse breath sounds with rhonchi. CARDIOVASCULAR: S1, S2, slightly tachycardic without murmur. ABDOMEN: Distended with a fluid wave. EXTREMITIES: Severe muscle wasting throughout. LABORATORY DATA: White blood cell count 15.2, hematocrit 43.9, platelet count 75. INR 1.6, PT 19.4. PH last night 7.46, pCO2 41, PO2 62. Sodium 136, potassium 3.9, chloride 100, CO2 29, BUN 49, crea tinine 0.8, glucose 127. His chest x-ray shows bilateral infiltrates, left greater than right. ASSESSMENT: 1. Chronic aspiration pneumonitis. This is made worse by his recent radiation and chemotherapy for tonsillar cancer. 2. Hepatitis C with significant ascites from cirrhosis. 3. Generalized failure to thrive. RECOMMENDATIONS: I agree with the current treatment regimen which includes the IV Zosyn. He does no t need ICU care at this time and can be transferred to the floor. At some point he will need a parac entesis as he is starting to reaccumulate fluid that was previously removed on 03/04/2017. I would a [facility] palliative care consultation. His prognosis is poor.
[2017-03-07] MEDS: Famotidine 20 MG TAB PER TUBE SCH ×2 (11:27→20:24)
[2017-03-07] MEDS: Gabapentin 300 MG CAP PO SCH ×3 (11:27→20:24)
[2017-03-07] MEDS: Furosemide 40 MG/4 ML VIAL SLOW IVP SCH ×2 (11:27→23:02)
[2017-03-07] MEDS: Diabetic Tussin 200 MG/10 ML UDCUP PER TUBE SCH ×2 (12:07→20:24)
[2017-03-07] MEDS: Spironolactone 100 MG TAB PER TUBE SCH (12:08)
[2017-03-07] MEDS: Piperacillin/Tazobactam 3.375 GM in Sodium Chloride 0.9% 100 ML IVPB SCH ×2 (12:08→18:24)
[2017-03-07 12:20] VITALS: BMI 26.3
--- NOTE | 2017-03-07 19:16 | PRG ---
DATE OF SERVICE: 03/07/2017 SUBJECTIVE: Mr. De La Torre is tolerating his tube feeds. He has no acute complaints currently. OBJECTIVE: Blood pressure 132/82, pulse 112, temperature 97.6. IMPRESSION: 1. Severe dysphagia, status post radiation for laryngeal cancer. Dobbhoff tube is in place for nutr ition. 2. Decompensated cirrhosis with ascites, elevated bilirubin, elevated INR, severe hypoalbuminemia. 3. Ascites and anasarca. He is on spironolactone and furosemide. He is receiving nutritional suppl ementation now and hopes to raise his serum protein levels. 4. Aspiration pneumonia. 5. Severe protein calorie malnutrition. RECOMMENDATIONS: Continue Dobbhoff tube feeds.
[2017-03-08] MEDS: Piperacillin/Tazobactam 3.375 GM in Sodium Chloride 0.9% 100 ML IVPB SCH ×4 (00:09→17:25)
[2017-03-08 05:30] LABS: Prothrombin Time 19.4 SEC (12.0-14.7)
[2017-03-08 05:39] LABS: ALT (SGPT) 14 U/L (8-55); AST (SGOT) 47 U/L (5-34); Alkaline Phosphatase 74 U/L (40-150); Anion Gap 10 mmol/L (10-20); BUN (Urea Nitrogen) 64 mg/dL (8.4-25.7); Bilirubin, Total 1.9 mg/dL (0.2-1.2); Calc. Creatinine Clearance 73 mL/min (70-130); Calcium 9.5 mg/dL (7.8-10.44); Carbon Dioxide 29 mmol/L (23-31); Chloride 105 mmol/L (98-107); Estimated GFR-MDRD 75; Globulin 4.4 g/dL (2.4-3.5); Protein, Total 6.3 g/dL (5.8-8.1)
[2017-03-08] MEDS ORDERED: Albumin 25% 25 GM/100 ML BOT IVPB SCH (06:00)
[2017-03-08 06:07] LABS: Mean Platelet Volume 9.5 fL (7.4-10.4); Neutrophil 94 % (42-75); Red Blood Cell (RBC) Count 5.04 mill/uL (4.70-6.10); Tear Drops SLIGHT = 2-5 cells (100X) (0-1/hpf); White Blood Cell (WBC) Count 13.5 thou/uL (4.8-10.8)
[2017-03-08] MEDS: Diabetic Tussin 200 MG/10 ML UDCUP PER TUBE SCH ×2 (08:00→21:06)
[2017-03-08] MEDS: Furosemide 40 MG/4 ML VIAL SLOW IVP SCH ×2 (08:00→21:05)
[2017-03-08] MEDS: Gabapentin 300 MG CAP PO SCH ×3 (08:01→21:05)
[2017-03-08] MEDS: Famotidine 20 MG TAB PER TUBE SCH ×2 (08:01→21:05)
[2017-03-08] MEDS: Spironolactone 100 MG TAB PER TUBE SCH (08:01)
--- NOTE | 2017-03-08 09:58 | PRG ---
DATE OF SERVICE: 03/08/2017 The patient says he feels better. He is concerned primarily with his feeding tube and getting tube f eeds as he thinks he will get better if his nutrition is improved. He still has a distended abdomen and is having some shortness of breath due to that. PHYSICAL EXAMINATION: VITAL SIGNS: Temperature 97.5, pulse 114, respirations 22, O2 sat 100% on 2 liters, blood pressure 1 41/86. HEENT: Remarkable for bitemporal wasting, very dry oropharynx. NECK: Radiation jenkins. He has a large scar on the left side of his neck. CARDIAC: S1, S2, slightly tachycardic without murmur. LUNGS: Coarse breath sounds bilaterally. ABDOMEN: Distended with ascites. EXTREMITIES: No edema. LABORATORY DATA: White blood cell count 13.5, hematocrit 49.0, platelet count 55. INR 1.6. Sodium 140, potassium 4.1, chloride 105, CO2 29, BUN 64, creatinine 0.9, glucose 128. ASSESSMENT: 1. Chronic aspiration pneumonitis. 2. Hepatitis C with significant ascites from cirrhosis. 3. Generalized failure to thrive. PLAN: I am told the patient is scheduled for paracentesis in order to maximize his respiratory statu s. His ascites needs to be controlled to the fullest extent possible. Unfortunately, this patient' s prognosis looks quite poor.
[2017-03-08 11:27] LABS: BF Reference Range Comment Note:
[2017-03-08 13:00] LABS: BF Color Yellow; BF WBC/Nonhematics Ct. - Manua 10 /cumm
--- NOTE | 2017-03-08 13:12 | PDOC.PN ---
- Subjective Encounter Start Date: 03/08/17 Encounter Start Time: 09:45 -: old records requested/rev pt has dubhuff tube, very weak, s/p paracentesis, family bedside - Objective Resuscitation Status: Resuscitation Status FULL:Full Resuscitation MAR Reviewed: Yes Vital Signs & Weight: Vital Signs (12 hours) Temp Pulse Resp BP BP Pulse Ox 03/08/17 12:21 97.6 F 112 H 22 H 116/72 97 03/08/17 11:36 110 H 28 H 03/08/17 11:00 97.2 F L 114 H 18 117/70 99 03/08/17 08:21 97.5 F L 114 H 22 H 141/86 H 100 03/08/17 08:00 97.5 F L 112 H 24 H 92 L 03/08/17 07:22 96 03/08/17 07:19 112 H 24 H 96 03/08/17 05:41 147/86 H 03/08/17 04:23 100 03/08/17 04:00 97.4 F L 112 H 20 161/108 H 99 03/08/17 03:37 112 H 18 100 Weight Admit Weight 168 lb Weight 175 lb 0.752 oz Most Recent Monitor Data Heart Rate from ECG 116 NIBP 112/71 NIBP BP-Mean 103 Respiration from ECG 20 SpO2 98 I&O: 03/07/17 03/08/17 03/09/17 06:59 06:59 06:59 Intake Total 480.5 Output Total 1125 998 Balance -1125 -517.5 Result Diagrams: 03/08/17 04:39 03/08/17 04:39 Phys Exam - Physical Examination Constitutional: NAD HEENT: PERRLA, moist MMs, sclera anicteric dubhuff tube Neck: no JVD, supple coarse sound+ Cardiovascular: RRR, no significant murmur, no rub Gastrointestinal: soft, positive bowel sounds ascites+ Musculoskeletal: pulses present, edema present Neurological: non-focal, normal sensation Psychiatric: normal affect, A&O x 3 Skin: no rash, normal turgor Dx/Plan (1) Aspiration pneumonia Code(s): J69.0 - PNEUMONITIS DUE TO INHALATION OF FOOD AND VOMIT Status: Acute (2) Cirrhosis of liver Code(s): K74.60 - UNSPECIFIED CIRRHOSIS OF LIVER Status: Acute Qualifiers: Ascites presence: with ascites (3) Ascites Code(s): R18.8 - OTHER ASCITES Status: Acute Qualifiers: Ascites type: due to alcoholic cirrhosis Qualified Code(s): K70.31 - Alcoholic cirrhosis of liver with ascites (4) Hyponatremia Code(s): E87.1 - HYPO-OSMOLALITY AND HYPONATREMIA Status: Acute (5) Thrombocytopenia Code(s): D69.6 - THROMBOCYTOPENIA, UNSPECIFIED Status: Acute (6) Anemia, normocytic normochromic Code(s): D64.9 - ANEMIA, UNSPECIFIED Status: Chronic (7) Failure to thrive Code(s): [id number] - Status: Chronic (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 SYSTEM Status: Chronic (9) Oropharyngeal dysphagia Code(s): R13.12 - DYSPHAGIA, OROPHARYNGEAL PHASE Status: Acute (10) Chronic hepatitis C Code(s): B18.2 - CHRONIC VIRAL HEPATITIS C Status: Chronic (11) Protein-calorie malnutrition, moderate Code(s): E44.0 - MODERATE PROTEIN-CALORIE MALNUTRITION Status: Chronic - Plan cont current plan of care, plan discussed w/ family, continue antibiotics, geriatric social worker * 6 liter fluid removed today * continue dubhuff tube feeding * discussed prognosis with brother and now tomorrow will meet rest of family for goal of care * medication reviewed as below * symptomatic treatment. Review of Systems - Review of Systems Other: not reliable today as pt is very weak, not cooperative - Medications/Allergies Allergies/Adverse Reactions: Allergies Allergy/AdvReac Type Severity Reaction Status Date / Time No Known Allergies Allergy Verified 08/24/16 12:15 Medications: Current Medications Acetaminophen (Tylenol) 650 mg NC Q4H PRN PRN Reason: Headache/Fever or Pain Acetaminophen (Tylenol) 650 mg PER TUBE Q4H PRN PRN Reason: Headache/Fever or Pain Hydrocodone Bitart/Acetaminophen ([place] 5/325) 1 tab PER TUBE Q4H PRN PRN Reason: Moderate Pain (4-6) Al Hydroxide/Mg Hydroxide (Maalox) 15 ml PER TUBE Q4H PRN PRN Reason: Heartburn or Indigestion Albumin Human (Albumin 25%) 50 gm IVPB WILLCALL KARLA Stop: 03/08/17 21:00 Albuterol/Ipratropium (Duoneb) 3 ml NEB [id number] [facility] Last Admin: 03/08/17 11:36 Dose: 3 ml Artificial Tears (Tears Naturale) 0 drop EA EYE PRN PRN PRN Reason: Dry Eyes Bisacodyl (Dulcolax) 10 mg PO DAILYPRN PRN PRN Reason: Constipation Lidocaine HCl 10 ml/ Al (Hydroxide/Mg Hydroxide 30 ml) 0 ml SSW TIDPRN PRN PRN Reason: painful swallowing Last Admin: 03/02/17 16:56 Dose: 1 dose Famotidine (Pepcid) 20 mg PER TUBE BID [facility] Last Admin: 03/08/17 08:01 Dose: 20 mg Furosemide (Lasix) 40 mg SLOW IVP Q12HR [facility] Last Admin: 03/08/17 08:00 Dose: 40 mg Gabapentin (Neurontin) 300 mg PO TID [facility] Last Admin: 03/08/17 08:01 Dose: 300 mg Guaifenesin (Robitussin Sf) 200 mg PER TUBE Q4H PRN PRN Reason: Cough Guaifenesin (Robitussin Sf) 600 mg PER TUBE Q12HR [facility] Last Admin: 03/08/17 08:00 Dose: 600 mg Hydralazine HCl (Apresoline) 10 mg SLOW IVP Q4H PRN PRN Reason: Systolic BP > 180 Piperacillin Sod/Tazobactam (Sod 3.375 gm/ Sodium Chloride) 100 mls @ 200 mls/ hr IVPB Q6HR [facility] Last Admin: 03/08/17 11:53 Dose: 100 mls Lactulose (Lactulose) 10 gm PER TUBE DAILYPRN PRN PRN Reason: Constipation Loperamide HCl (Imodium) 2 mg PER TUBE PRN PRN PRN Reason: Diarrhea/Loose Stools Loratadine (Claritin) 10 mg PER TUBE DAILYPRN PRN PRN Reason: Sinus Symptoms Magnesium Hydroxide (Milk Of Magnesium) 30 ml PER TUBE DAILYPRN PRN PRN Reason: Constipation Mineral Oil/White Petrolatum (Eucerin Cream) 0 gm TOP BIDPRN PRN PRN Reason: Dry Skin Morphine Sulfate (Morphine) 2 mg IV Q4H PRN PRN Reason: Moderate to Severe Pain (6-10) Last Admin: 03/03/17 23:30 Dose: 2 mg Ondansetron HCl (Zofran) 4 mg IVP Q6H PRN PRN Reason: Nausea/Vomiting Ondansetron HCl (Zofran Odt) 4 mg PER TUBE Q6H PRN PRN Reason: Nausea/Vomiting Phenol (Chloraseptic [place] 180 Ml Bot) 0 ml PO PRN PRN PRN Reason: Sore Throat Last Admin: 03/02/17 21:30 Dose: 2 spray Sodium Chloride ([place] Nasal [place] 0.65%) 0 ml EA NARE QIDPRN PRN PRN Reason: Nasal Congestion Sodium Chloride (Flush - Normal Saline) 10 ml IVF Q12HR [facility] Last Admin: 03/08/17 08:01 Dose: 10 ml Sodium Chloride (Flush - Normal Saline) 10 ml IVF PRN PRN PRN Reason: Saline Flush Last Admin: 03/08/17 11:53 Dose: 10 ml Spironolactone (Aldactone) 100 mg PER TUBE DAILY [facility] Last Admin: 03/08/17 08:01 Dose: 100 mg
[2017-03-08 13:57] LABS: Number Cells Counted-Fluids 100
--- NOTE | 2017-03-08 14:03 | PRG ---
GI INPATIENT DAILY PROGRESS NOTE DATE OF SERVICE: 03/08/2017 SUBJECTIVE: Mr. De La Torre had a paracentesis of 6 liters earlier today. He denies any abdominal pain . He has been resting comfortably. Tube feeds had not yet been resumed. He is tolerating them well . OBJECTIVE: VITAL SIGNS: Temperature 97.6, pulse 112, blood pressure 116/72 and 97% oxygen saturation on room ai r. GENERAL: Frail, chronically ill, lying in bed comfortably in no distress. HEART: Regular tachycardia. LUNGS: Clear to auscultation bilaterally. ABDOMEN: Mild distention, soft, nontender to palpation. EXTREMITIES: 1+ bilateral edema to the thighs. LABORATORY STUDIES: WBC 13.5, hemoglobin 14.4 and platelets 55. INR 1.6. Sodium 140, potassium 4.1 , BUN 64, creatinine 0.98, total bilirubin 1.9, alkaline phosphatase 74. AST 47, ALT 14 and albumin 1.9. Paracentesis fluid from today showed only 10 WBCs. ASSESSMENT AND PLAN: 1. Severe dysphagia, status post radiation for laryngeal cancer. Dobbhoff tube is in place for nutr ition. Resume tube feeds at previous rate. No plans to place a percutaneous endoscopic gastrostomy tube in the context of ascites, due to risk of complications. 2. Decompensated cirrhosis with ascites and severe hypoalbuminemia. The patient remains on spironol actone and furosemide. Continue nutritional supplementation. Prognosis is poor.
--- NOTE | 2017-03-08 14:18 | ULT ---
ULTRASOUND GUIDED PARACENTESIS: DATE: 03/08/17. HISTORY: Recurrent ascites. Head and neck cancer. TECHNIQUE: After informed consent was obtained, the patient was placed on the sonography table in the supine pos ition. Limited sonographic evaluation of the abdomen was performed. An area in the mid axillary ayanna e right upper quadrant was marked and meticulously prepped and draped in the usual sterile fashion. The skin and subcutaneous tissues were infiltrated with buffered 1% Lidocaine for local anesthesia. A small skin incision was made. Utilizing concurrent real-time ultrasound guidance, a 19-gauge [employer] needle with 5 [place] sheath was advanced into the abdomen. After return of fluid, the sheath was adv anced, and the needle was removed. Approximately 6 L of clear straw-colored fluid was aspirated. Th e sheath was removed, and hemostasis was achieved with direct pressure. A small amount of intraperit [place] free fluid was noted after paracentesis. The patient tolerated the procedure well and without immediate complication. A dry sterile dressing is placed at the catheter entry site. The patient was transported to his hospital room in stable con dition. IMPRESSION: Technically successful ultrasound-guided paracentesis. POS: [facility]
[2017-03-09] MEDS: Piperacillin/Tazobactam 3.375 GM in Sodium Chloride 0.9% 100 ML IVPB SCH ×4 (00:25→17:34)
[2017-03-09] MEDS: HYDROcodone/Acetaminophen 5/325 mg Tablet PER TUBE PRN ×3 (00:26→14:39)
[2017-03-09] MEDS: Furosemide 40 MG/4 ML VIAL SLOW IVP SCH ×2 (08:20→21:46)
[2017-03-09] MEDS: Spironolactone 100 MG TAB PER TUBE SCH (08:23)
[2017-03-09] MEDS: Diabetic Tussin 200 MG/10 ML UDCUP PER TUBE SCH ×2 (08:23→21:43)
[2017-03-09] MEDS: Famotidine 20 MG TAB PER TUBE SCH ×2 (08:24→21:42)
[2017-03-09] MEDS: Gabapentin 300 MG CAP PO SCH ×3 (08:24→21:46)
--- NOTE | 2017-03-09 08:45 | PRG ---
DATE OF SERVICE: 03/09/2017 The patient is doing reasonably well despite circumstances. PHYSICAL EXAMINATION: VITAL SIGNS: Temperature 97.9, pulse 113, respiratory 18, O2 sat 96, blood pressure 122/80. HEENT: Unremarkable. NECK: No JVD. He has obvious radiation scars. CARDIAC: S1 and S2 regular. LUNGS: Clear. ABDOMEN: Much less distended after paracentesis yesterday. EXTREMITIES: No edema. LABORATORY DATA: No new labs were obtained today. ASSESSMENT: 1. Ascites secondary to cirrhosis. 2. Dysphagia after radiation for laryngeal cancer. 3. Aspiration. PLAN: The patient seems to be reasonably stable. I do not have much to add from my standpoint. Pul monary will be available as needed.
--- NOTE | 2017-03-09 12:49 | PDOC.PN ---
- Subjective Encounter Start Date: 03/09/17 Encounter Start Time: 10:40 today more alert and little strong, family bedside - Objective Resuscitation Status: Resuscitation Status FULL:Full Resuscitation MAR Reviewed: Yes Vital Signs & Weight: Vital Signs (12 hours) Temp Pulse Resp BP Pulse Ox 03/09/17 08:00 97.9 F 113 H 18 125/80 96 03/09/17 06:36 110 H 18 03/09/17 04:00 97.4 F L 111 H 20 121/77 96 03/09/17 02:39 100 03/09/17 00:55 110 H 18 94 L Weight Admit Weight 168 lb Weight 175 lb 0.752 oz Most Recent Monitor Data Heart Rate from ECG 116 NIBP 112/71 NIBP BP-Mean 103 Respiration from ECG 20 SpO2 98 I&O: 03/08/17 03/09/17 03/10/17 06:59 06:59 06:59 Intake Total 480.5 999 Output Total 998 1100 Balance -517.5 -101 Result Diagrams: 03/08/17 04:39 03/08/17 04:39 Additional Labs: Accuchecks 03/09/17 03/08/17 04:47 19:41 POC Glucose 122 H 115 H Phys Exam - Physical Examination Constitutional: NAD cachectic HEENT: PERRLA, sclera anicteric dry MM, poor dentition dubhuff tube+ Neck: no JVD, supple Respiratory: no wheezing, no rales, no rhonchi Cardiovascular: RRR, no significant murmur, no rub Gastrointestinal: soft, non-tender, positive bowel sounds ascites+ Musculoskeletal: no edema, pulses present Neurological: non-focal, normal sensation Lymphatic: no nodes Psychiatric: normal affect Skin: no rash, normal turgor Dx/Plan (1) Aspiration pneumonia Code(s): J69.0 - PNEUMONITIS DUE TO INHALATION OF FOOD AND VOMIT Status: Acute (2) Cirrhosis of liver Code(s): K74.60 - UNSPECIFIED CIRRHOSIS OF LIVER Status: Acute Qualifiers: Ascites presence: with ascites (3) Ascites Code(s): R18.8 - OTHER ASCITES Status: Acute Qualifiers: Ascites type: due to alcoholic cirrhosis Qualified Code(s): K70.31 - Alcoholic cirrhosis of liver with ascites (4) Hyponatremia Code(s): E87.1 - HYPO-OSMOLALITY AND HYPONATREMIA Status: Acute (5) Thrombocytopenia Code(s): D69.6 - THROMBOCYTOPENIA, UNSPECIFIED Status: Acute (6) Anemia, normocytic normochromic Code(s): D64.9 - ANEMIA, UNSPECIFIED Status: Chronic (7) Failure to thrive Code(s): [id number] - Status: Chronic (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 SYSTEM Status: Chronic (9) Oropharyngeal dysphagia Code(s): R13.12 - DYSPHAGIA, OROPHARYNGEAL PHASE Status: Acute (10) Chronic hepatitis C Code(s): B18.2 - CHRONIC VIRAL HEPATITIS C Status: Chronic (11) Protein-calorie malnutrition, moderate Code(s): E44.0 - MODERATE PROTEIN-CALORIE MALNUTRITION Status: Chronic - Plan cont current plan of care, plan discussed w/ family, continue antibiotics, social media marketing specialist * continue dubhuff tube feeding * total 20 minutes spent with family member with family meeting discussing goal of care and answered various questions * prognosis is poor * medication reviewed as below * symptomatic treatment. Review of Systems - Review of Systems Other: not reliable with pt as pt is still weak and does not participate well - Medications/Allergies Allergies/Adverse Reactions: Allergies Allergy/AdvReac Type Severity Reaction Status Date / Time No Known Allergies Allergy Verified 08/24/16 12:15 Medications: Current Medications Acetaminophen (Tylenol) 650 mg [place] Q4H PRN PRN Reason: Headache/Fever or Pain Acetaminophen (Tylenol) 650 mg PER TUBE Q4H PRN PRN Reason: Headache/Fever or Pain Hydrocodone Bitart/Acetaminophen ([place] 5/325) 1 tab PER TUBE Q4H PRN PRN Reason: Moderate Pain (4-6) Last Admin: 03/09/17 08:28 Dose: 1 tab Al Hydroxide/Mg Hydroxide (Maalox) 15 ml PER TUBE Q4H PRN PRN Reason: Heartburn or Indigestion Albuterol/Ipratropium (Duoneb) 3 ml NEB [id number] KARLA Last Admin: 03/09/17 06:36 Dose: 3 ml Artificial Tears (Tears Naturale) 0 drop EA EYE PRN PRN PRN Reason: Dry Eyes Bisacodyl (Dulcolax) 10 mg PO DAILYPRN PRN PRN Reason: Constipation Lidocaine HCl 10 ml/ Al (Hydroxide/Mg Hydroxide 30 ml) 0 ml SSW TIDPRN PRN PRN Reason: painful swallowing Last Admin: 03/02/17 16:56 Dose: 1 dose Famotidine (Pepcid) 20 mg PER TUBE BID [facility] Last Admin: 03/09/17 08:24 Dose: 20 mg Furosemide (Lasix) 40 mg SLOW IVP Q12HR [facility] Last Admin: 03/09/17 08:20 Dose: 40 mg Gabapentin (Neurontin) 300 mg PO TID [facility] Last Admin: 03/09/17 08:24 Dose: 300 mg Guaifenesin (Robitussin Sf) 200 mg PER TUBE Q4H PRN PRN Reason: Cough Guaifenesin (Robitussin Sf) 600 mg PER TUBE Q12HR [facility] Last Admin: 03/09/17 08:23 Dose: 600 mg Hydralazine HCl (Apresoline) 10 mg SLOW IVP Q4H PRN PRN Reason: Systolic BP > 180 Piperacillin Sod/Tazobactam (Sod 3.375 gm/ Sodium Chloride) 100 mls @ 200 mls/ hr IVPB Q6HR [facility] Last Admin: 03/09/17 11:18 Dose: 100 mls Lactulose (Lactulose) 10 gm PER TUBE DAILYPRN PRN PRN Reason: Constipation Loperamide HCl (Imodium) 2 mg PER TUBE PRN PRN PRN Reason: Diarrhea/Loose Stools Loratadine (Claritin) 10 mg PER TUBE DAILYPRN PRN PRN Reason: Sinus Symptoms Magnesium Hydroxide (Milk Of Magnesium) 30 ml PER TUBE DAILYPRN PRN PRN Reason: Constipation Mineral Oil/White Petrolatum (Eucerin Cream) 0 gm TOP BIDPRN PRN PRN Reason: Dry Skin Morphine Sulfate (Morphine) 2 mg IV Q4H PRN PRN Reason: Moderate to Severe Pain (6-10) Last Admin: 03/03/17 23:30 Dose: 2 mg Ondansetron HCl (Zofran) 4 mg IVP Q6H PRN PRN Reason: Nausea/Vomiting Ondansetron HCl (Zofran Odt) 4 mg PER TUBE Q6H PRN PRN Reason: Nausea/Vomiting Phenol (Chloraseptic [place] 180 Ml Bot) 0 ml PO PRN PRN PRN Reason: Sore Throat Last Admin: 03/02/17 21:30 Dose: 2 spray Sodium Chloride ([place] Nasal [place] 0.65%) 0 ml EA NARE QIDPRN PRN PRN Reason: Nasal Congestion Sodium Chloride (Flush - Normal Saline) 10 ml IVF Q12HR [facility] Last Admin: 03/09/17 08:29 Dose: 10 ml Sodium Chloride (Flush - Normal Saline) 10 ml IVF PRN PRN PRN Reason: Saline Flush Last Admin: 03/08/17 21:08 Dose: 10 ml Spironolactone (Aldactone) 100 mg PER TUBE DAILY [facility] Last Admin: 03/09/17 08:23 Dose: 100 mg
--- NOTE | 2017-03-09 17:41 | PRG ---
GI INPATIENT DAILY PROGRESS NOTE DATE OF SERVICE: 03/09/2017 SUBJECTIVE: Mr. De La Torre is feeling okay today. He denies any nausea or reflux symptoms. There is no abdominal pain. He is tolerating his tube feeds well. OBJECTIVE: VITAL SIGNS: Temperature 97.9, pulse 113, blood pressure 125/80, 96% oxygen saturation on 2 liters n kale cannula. GENERAL: No acute distress, Dobbhoff tube in place in the right naris. HEART: Regular tachycardia. LUNGS: Clear to auscultation bilaterally. ABDOMEN: Mild distention, soft and nontender to palpation. EXTREMITIES: No peripheral edema. LABORATORY STUDIES: No new labs from today. ASSESSMENT AND PLAN: 1. Severe dysphagia, status post radiation for laryngeal cancer. 2. Decompensated cirrhosis with ascites and severe hypoalbuminemia, diuretics continued. Continue th e Dobbhoff tube feeds. Prognosis remains poor. GI will follow at a distance, but please call at any time with questions or concerns.
[2017-03-10] MEDS: Piperacillin/Tazobactam 3.375 GM in Sodium Chloride 0.9% 100 ML IVPB SCH ×5 (00:49→23:07)
[2017-03-10] MEDS: Diabetic Tussin 200 MG/10 ML UDCUP PER TUBE SCH ×2 (08:15→21:38)
[2017-03-10] MEDS: Spironolactone 100 MG TAB PER TUBE SCH (08:16)
[2017-03-10] MEDS: Gabapentin 300 MG CAP PO SCH ×3 (08:16→21:31)
[2017-03-10] MEDS: Famotidine 20 MG TAB PER TUBE SCH ×2 (08:16→21:31)
[2017-03-10] MEDS: Furosemide 40 MG/4 ML VIAL SLOW IVP SCH ×2 (08:16→21:31)
--- NOTE | 2017-03-10 11:48 | PDOC.PN ---
- Subjective Encounter Start Date: 03/10/17 Encounter Start Time: 09:40 pt is very weak, gets tachycardia with little effort, son bedside, DNR verified - Objective Resuscitation Status: Resuscitation Status DNR:Do Not Resuscitate MAR Reviewed: Yes Vital Signs & Weight: Vital Signs (12 hours) Temp Pulse Resp BP Pulse Ox 03/10/17 08:00 97.5 F L 115 H 20 119/77 98 03/10/17 07:00 109 H 15 96 03/10/17 01:14 104 H 16 Weight Admit Weight 168 lb Weight 175 lb 0.752 oz Most Recent Monitor Data Heart Rate from ECG 116 NIBP 112/71 NIBP BP-Mean 103 Respiration from ECG 20 SpO2 98 I&O: 03/09/17 03/10/17 03/11/17 06:59 06:59 06:59 Intake Total 999 150 670 Output Total 1100 300 Balance -101 150 370 Result Diagrams: 03/08/17 04:39 03/08/17 04:39 Phys Exam - Physical Examination Constitutional: NAD HEENT: PERRLA, moist MMs, sclera anicteric dubhuff tube Neck: no nodes, no JVD, supple Respiratory: no wheezing, no rales, no rhonchi Cardiovascular: RRR, no significant murmur, no rub tachycardia Gastrointestinal: soft, positive bowel sounds ascites+ Musculoskeletal: no edema, pulses present Neurological: non-focal, normal sensation Lymphatic: no nodes Psychiatric: normal affect Skin: no rash, normal turgor Dx/Plan (1) Aspiration pneumonia Code(s): J69.0 - PNEUMONITIS DUE TO INHALATION OF FOOD AND VOMIT Status: Acute (2) Cirrhosis of liver Code(s): K74.60 - UNSPECIFIED CIRRHOSIS OF LIVER Status: Acute Qualifiers: Ascites presence: with ascites (3) Ascites Code(s): R18.8 - OTHER ASCITES Status: Acute Qualifiers: Ascites type: due to alcoholic cirrhosis Qualified Code(s): K70.31 - Alcoholic cirrhosis of liver with ascites (4) Hyponatremia Code(s): E87.1 - HYPO-OSMOLALITY AND HYPONATREMIA Status: Acute (5) Thrombocytopenia Code(s): D69.6 - THROMBOCYTOPENIA, UNSPECIFIED Status: Acute (6) Anemia, normocytic normochromic Code(s): D64.9 - ANEMIA, UNSPECIFIED Status: Chronic (7) Failure to thrive Code(s): [id number] - Status: Chronic (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 SYSTEM Status: Chronic (9) Oropharyngeal dysphagia Code(s): R13.12 - DYSPHAGIA, OROPHARYNGEAL PHASE Status: Acute (10) Chronic hepatitis C Code(s): B18.2 - CHRONIC VIRAL HEPATITIS C Status: Chronic (11) Protein-calorie malnutrition, moderate Code(s): E44.0 - MODERATE PROTEIN-CALORIE MALNUTRITION Status: Chronic - Plan cont current plan of care, plan discussed w/ family, continue antibiotics, PT/OT , speech therapy * code status changed to DNR * tomorrow will repeat labs * will repeat chest xray tomorrow * medication reviewed as below * symptomatic treatment * discussed with son * continue iv zosyn for now. Review of Systems - Review of Systems Other: not reliable due to level of weakness and cognitive status - Medications/Allergies Allergies/Adverse Reactions: Allergies Allergy/AdvReac Type Severity Reaction Status Date / Time No Known Allergies Allergy Verified 08/24/16 12:15 Medications: Current Medications Acetaminophen (Tylenol) 650 mg MD Q4H PRN PRN Reason: Headache/Fever or Pain Acetaminophen (Tylenol) 650 mg PER TUBE Q4H PRN PRN Reason: Headache/Fever or Pain Hydrocodone Bitart/Acetaminophen ([place] 5/325) 1 tab PER TUBE Q4H PRN PRN Reason: Moderate Pain (4-6) Last Admin: 03/09/17 14:39 Dose: 1 tab Al Hydroxide/Mg Hydroxide (Maalox) 15 ml PER TUBE Q4H PRN PRN Reason: Heartburn or Indigestion Albuterol/Ipratropium (Duoneb) 3 ml NEB [id number] KARLA Last Admin: 03/10/17 07:00 Dose: 3 ml Artificial Tears (Tears Naturale) 0 drop EA EYE PRN PRN PRN Reason: Dry Eyes Bisacodyl (Dulcolax) 10 mg PO DAILYPRN PRN PRN Reason: Constipation Lidocaine HCl 10 ml/ Al (Hydroxide/Mg Hydroxide 30 ml) 0 ml SSW TIDPRN PRN PRN Reason: painful swallowing Last Admin: 03/02/17 16:56 Dose: 1 dose Famotidine (Pepcid) 20 mg PER TUBE BID [facility] Last Admin: 03/10/17 08:16 Dose: 20 mg Furosemide (Lasix) 40 mg SLOW IVP Q12HR [facility] Last Admin: 03/10/17 08:16 Dose: 40 mg Gabapentin (Neurontin) 300 mg PO TID [facility] Last Admin: 03/10/17 08:16 Dose: 300 mg Guaifenesin (Robitussin Sf) 200 mg PER TUBE Q4H PRN PRN Reason: Cough Guaifenesin (Robitussin Sf) 600 mg PER TUBE Q12HR [facility] Last Admin: 03/10/17 08:15 Dose: 600 mg Hydralazine HCl (Apresoline) 10 mg SLOW IVP Q4H PRN PRN Reason: Systolic BP > 180 Piperacillin Sod/Tazobactam (Sod 3.375 gm/ Sodium Chloride) 100 mls @ 200 mls/ hr IVPB Q6HR [facility] Last Admin: 03/10/17 06:19 Dose: 100 mls Lactulose (Lactulose) 10 gm PER TUBE DAILYPRN PRN PRN Reason: Constipation Loperamide HCl (Imodium) 2 mg PER TUBE PRN PRN PRN Reason: Diarrhea/Loose Stools Loratadine (Claritin) 10 mg PER TUBE DAILYPRN PRN PRN Reason: Sinus Symptoms Magnesium Hydroxide (Milk Of Magnesium) 30 ml PER TUBE DAILYPRN PRN PRN Reason: Constipation Mineral Oil/White Petrolatum (Eucerin Cream) 0 gm TOP BIDPRN PRN PRN Reason: Dry Skin Morphine Sulfate (Morphine) 2 mg IV Q4H PRN PRN Reason: Moderate to Severe Pain (6-10) Last Admin: 03/03/17 23:30 Dose: 2 mg Ondansetron HCl (Zofran) 4 mg IVP Q6H PRN PRN Reason: Nausea/Vomiting Ondansetron HCl (Zofran Odt) 4 mg PER TUBE Q6H PRN PRN Reason: Nausea/Vomiting Phenol (Chloraseptic [place] 180 Ml Bot) 0 ml PO PRN PRN PRN Reason: Sore Throat Last Admin: 03/02/17 21:30 Dose: 2 spray Sodium Chloride ([place] Nasal [place] 0.65%) 0 ml EA NARE QIDPRN PRN PRN Reason: Nasal Congestion Sodium Chloride (Flush - Normal Saline) 10 ml IVF Q12HR [facility] Last Admin: 03/10/17 08:16 Dose: 10 ml Sodium Chloride (Flush - Normal Saline) 10 ml IVF PRN PRN PRN Reason: Saline Flush Last Admin: 03/08/17 21:08 Dose: 10 ml Spironolactone (Aldactone) 100 mg PER TUBE DAILY [facility] Last Admin: 03/10/17 08:16 Dose: 100 mg
[2017-03-10] MEDS: HYDROcodone/Acetaminophen 5/325 mg Tablet PER TUBE PRN (23:08)
[2017-03-11 05:47] LABS: Prothrombin Time 20.8 SEC (12.0-14.7)
[2017-03-11 05:51] LABS: Band 2 % (5-11); Hematocrit 48.6 % (42.0-52.0); Mean Platelet Volume 10.4 fL (7.4-10.4); Neutrophil 88 % (42-75); Nucleated RBC 2 % (0); Red Blood Cell (RBC) Count 4.87 mill/uL (4.70-6.10); White Blood Cell (WBC) Count 18.7 thou/uL (4.8-10.8)
[2017-03-11] MEDS: Piperacillin/Tazobactam 3.375 GM in Sodium Chloride 0.9% 100 ML IVPB SCH (05:54)
[2017-03-11] MEDS: HYDROcodone/Acetaminophen 5/325 mg Tablet PER TUBE PRN ×3 (05:55→20:08)
[2017-03-11 06:05] LABS: ALT (SGPT) 15 U/L (8-55); AST (SGOT) 37 U/L (5-34); Alkaline Phosphatase 96 U/L (40-150); Anion Gap 12 mmol/L (10-20); BUN (Urea Nitrogen) 95 mg/dL (8.4-25.7); Bilirubin, Total 1.9 mg/dL (0.2-1.2); Calc. Creatinine Clearance 35 mL/min (70-130); Calcium 9.9 mg/dL (7.8-10.44); Carbon Dioxide 29 mmol/L (23-31); Chloride 108 mmol/L (98-107); Estimated GFR-MDRD 32; Globulin 4.8 g/dL (2.4-3.5); Magnesium 2.6 mg/dL (1.6-2.6); Phosphorus 4.1 mg/dL (2.3-4.7); Protein, Total 6.7 g/dL (5.8-8.1)
[2017-03-11] MEDS: Furosemide 40 MG/4 ML VIAL SLOW IVP SCH (08:48)
[2017-03-11] MEDS: Gabapentin 300 MG CAP PO SCH (08:49)
[2017-03-11] MEDS: Famotidine 20 MG TAB PER TUBE SCH ×2 (08:49→09:13)
[2017-03-11] MEDS: Spironolactone 100 MG TAB PER TUBE SCH (08:52)
[2017-03-11] MEDS: Diabetic Tussin 200 MG/10 ML UDCUP PER TUBE SCH ×2 (09:01→20:07)
[2017-03-11] MEDS: Sodium Chloride 0.9% 1,000 ML IV SCH (09:13)
--- NOTE | 2017-03-11 11:16 | RAD ---
RADIOGRAPH CHEST 1 VIEW: Date: 03/11/17 Time: 0748 HOURS HISTORY: 77-year-old male with pneumonia. COMPARISON: 03/06/17 at 1949 hours. FINDINGS: Dobbhoff feeding tube remains curled in the fundus of the stomach. The lungs remain hypoinflated. Lef t upper lung zone infiltrates have mildly improved. Left lower lung zone infiltrates and right lower lung zone infiltrates are unchanged. No evidence of pneumothorax. IMPRESSION: 1. Interval improvement in the left upper lobe infiltrates. 2. No interval change in the bilateral lower lung zone infiltrates. 3. No change in Dobbhoff feeding tube in the proximal stomach. JN [] POS: CET
--- NOTE | 2017-03-11 12:32 | PDOC.PN ---
- Subjective Encounter Start Date: 03/11/17 Encounter Start Time: 09:10 pt is very weak, unable o produce voice, cachectic, not tolerating tube feeding - Objective Resuscitation Status: Resuscitation Status DNR:Do Not Resuscitate MAR Reviewed: Yes Vital Signs & Weight: Vital Signs (12 hours) Temp Pulse Resp BP Pulse Ox 03/11/17 08:20 97.3 F L 105 H 20 126/82 100 03/11/17 08:00 97.3 F L 105 H 20 100 03/11/17 07:27 99 03/11/17 07:25 105 H 22 H 99 03/11/17 01:30 98 Weight Admit Weight 168 lb Weight 175 lb 0.752 oz Most Recent Monitor Data Heart Rate from ECG 116 NIBP 112/71 NIBP BP-Mean 103 Respiration from ECG 20 SpO2 98 I&O: 03/10/17 03/11/17 03/12/17 06:59 06:59 06:59 Intake Total 150 710 Output Total 300 Balance 150 410 Result Diagrams: 03/11/17 05:07 03/11/17 05:07 Radiology Reviewed by me: Yes (chest xray) Phys Exam - Physical Examination Constitutional: NAD cachectic HEENT: PERRLA, sclera anicteric dry MM Neck: no JVD, supple Respiratory: no wheezing, no rales, no rhonchi Cardiovascular: RRR, no significant murmur, no rub Gastrointestinal: soft, positive bowel sounds ascites+ Musculoskeletal: no edema, pulses present Neurological: non-focal Lymphatic: no nodes Psychiatric: normal affect Skin: no rash, normal turgor Dx/Plan (1) Acute kidney failure Status: Acute (2) Aspiration pneumonia Code(s): J69.0 - PNEUMONITIS DUE TO INHALATION OF FOOD AND VOMIT Status: Acute (3) Cirrhosis of liver Code(s): K74.60 - UNSPECIFIED CIRRHOSIS OF LIVER Status: Acute Qualifiers: Ascites presence: with ascites (4) Ascites Code(s): R18.8 - OTHER ASCITES Status: Acute Qualifiers: Ascites type: due to alcoholic cirrhosis Qualified Code(s): K70.31 - Alcoholic cirrhosis of liver with ascites (5) Hyponatremia Code(s): E87.1 - HYPO-OSMOLALITY AND HYPONATREMIA Status: Acute (6) Thrombocytopenia Code(s): D69.6 - THROMBOCYTOPENIA, UNSPECIFIED Status: Acute (7) Anemia, normocytic normochromic Code(s): D64.9 - ANEMIA, UNSPECIFIED Status: Chronic (8) Failure to thrive Code(s): [id number] - Status: Chronic (9) 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 - NEOPLASM OF UNSPECIFIED BEHAVIOR OF DIGESTIVE SYSTEM Status: Chronic (10) Oropharyngeal dysphagia Code(s): R13.12 - DYSPHAGIA, OROPHARYNGEAL PHASE Status: Acute (11) Chronic hepatitis C Code(s): B18.2 - CHRONIC VIRAL HEPATITIS C Status: Chronic (12) Protein-calorie malnutrition, moderate Code(s): E44.0 - MODERATE PROTEIN-CALORIE MALNUTRITION Status: Chronic - Plan cont current plan of care, plan discussed w/ family, continue antibiotics, social research assistant * DC Lasix, aldactone * give NS at 50 ml per hour * add reglan * tube feeding as tolerated * medication reviewed as below * symptomatic treatment * change zosyn to meropenam * discussed with family * prognosis is poor * supportive care. Review of Systems - Review of Systems Other: unable to review as pt is unable to participate, lethargic - Medications/Allergies Allergies/Adverse Reactions: Allergies Allergy/AdvReac Type Severity Reaction Status Date / Time No Known Allergies Allergy Verified 08/24/16 12:15 Medications: Current Medications Acetaminophen (Tylenol) 650 mg AL Q4H PRN PRN Reason: Headache/Fever or Pain Acetaminophen (Tylenol) 650 mg PER TUBE Q4H PRN PRN Reason: Headache/Fever or Pain Hydrocodone Bitart/Acetaminophen ([place] 5/325) 1 tab PER TUBE Q4H PRN PRN Reason: Moderate Pain (4-6) Last Admin: 03/11/17 05:55 Dose: 1 tab Al Hydroxide/Mg Hydroxide (Maalox) 15 ml PER TUBE Q4H PRN PRN Reason: Heartburn or Indigestion Albuterol/Ipratropium (Duoneb) 3 ml NEB [id number] KARLA Last Admin: 03/11/17 07:25 Dose: 3 ml Artificial Tears (Tears Naturale) 0 drop EA EYE PRN PRN PRN Reason: Dry Eyes Bisacodyl (Dulcolax) 10 mg PO DAILYPRN PRN PRN Reason: Constipation Lidocaine HCl 10 ml/ Al (Hydroxide/Mg Hydroxide 30 ml) 0 ml SSW TIDPRN PRN PRN Reason: painful swallowing Last Admin: 03/02/17 16:56 Dose: 1 dose Famotidine (Pepcid) 20 mg PER TUBE DAILY [facility] Last Admin: 03/11/17 09:13 Dose: 20 mg Gabapentin (Neurontin) 100 mg PO TID [facility] Guaifenesin (Robitussin Sf) 200 mg PER TUBE Q4H PRN PRN Reason: Cough Guaifenesin (Robitussin Sf) 600 mg PER TUBE Q12HR [facility] Last Admin: 03/11/17 09:01 Dose: 600 mg Hydralazine HCl (Apresoline) 10 mg SLOW IVP Q4H PRN PRN Reason: Systolic BP > 180 Sodium Chloride (Normal Saline 0.9%) 1,000 mls @ 50 mls/hr IV .Q20H [facility] Last Admin: 03/11/17 09:13 Dose: 1,000 mls Meropenem 500 mg/Miscellaneous Medication 1 each/ Sterile Water 10 mls @ 120 mls/hr SLOW IVP Q8HR [facility] Lactulose (Lactulose) 10 gm PER TUBE DAILYPRN PRN PRN Reason: Constipation Loperamide HCl (Imodium) 2 mg PER TUBE PRN PRN PRN Reason: Diarrhea/Loose Stools Loratadine (Claritin) 10 mg PER TUBE DAILYPRN PRN PRN Reason: Sinus Symptoms Magnesium Hydroxide (Milk Of Magnesium) 30 ml PER TUBE DAILYPRN PRN PRN Reason: Constipation Metoclopramide HCl (Reglan) 5 mg IVP Q8HR [facility] Mineral Oil/White Petrolatum (Eucerin Cream) 0 gm TOP BIDPRN PRN PRN Reason: Dry Skin Morphine Sulfate (Morphine) 2 mg IV Q4H PRN PRN Reason: Moderate to Severe Pain (6-10) Last Admin: 03/03/17 23:30 Dose: 2 mg Ondansetron HCl (Zofran) 4 mg IVP Q6H PRN PRN Reason: Nausea/Vomiting Ondansetron HCl (Zofran Odt) 4 mg PER TUBE Q6H PRN PRN Reason: Nausea/Vomiting Phenol (Chloraseptic [place] 180 Ml Bot) 0 ml PO PRN PRN PRN Reason: Sore Throat Last Admin: 03/02/17 21:30 Dose: 2 spray Sodium Chloride ([place] Nasal [place] 0.65%) 0 ml EA NARE QIDPRN PRN PRN Reason: Nasal Congestion Sodium Chloride (Flush - Normal Saline) 10 ml IVF Q12HR [facility] Last Admin: 03/11/17 08:54 Dose: 10 ml Sodium Chloride (Flush - Normal Saline) 10 ml IVF PRN PRN PRN Reason: Saline Flush Last Admin: 03/08/17 21:08 Dose: 10 ml
[2017-03-11] MEDS ORDERED: Meropenem 500 MG in Sodium Chloride 0.9% 100 ML IVPB SCH (14:00)
[2017-03-11] MEDS: Metoclopramide HCl 10 MG/2 ML VIAL IVP SCH ×2 (14:25→22:27)
[2017-03-11] MEDS: Gabapentin 100 MG CAP PO SCH ×2 (14:26→20:08)
[2017-03-11] MEDS: Meropenem 500 MG, Admixture Fee 1 EACH in Sterile Water 10 ML SLOW IVP SCH ×2 (14:26→22:28)
[2017-03-12] MEDS: Metoclopramide HCl 10 MG/2 ML VIAL IVP SCH ×3 (05:26→21:06)
[2017-03-12] MEDS: Meropenem 500 MG, Admixture Fee 1 EACH in Sterile Water 10 ML SLOW IVP SCH ×2 (05:26→17:48)
[2017-03-12] MEDS: HYDROcodone/Acetaminophen 5/325 mg Tablet PER TUBE PRN (05:42)
[2017-03-12] MEDS: Sodium Chloride 0.9% 1,000 ML IV SCH (05:46)
--- NOTE | 2017-03-12 12:05 | PDOC.PN ---
- Subjective Encounter Start Date: 03/12/17 Encounter Start Time: 09:40 pt is lethargic, drawsy, Patient seen and examined. No overnight events - Objective Resuscitation Status: Resuscitation Status DNR:Do Not Resuscitate MAR Reviewed: Yes Vital Signs & Weight: Vital Signs (12 hours) Temp Pulse Resp BP Pulse Ox 03/12/17 08:32 97.4 F L 107 H 18 133/84 93 L 03/12/17 06:17 97 03/12/17 06:14 97 16 Weight Admit Weight 168 lb Weight 175 lb 0.752 oz Most Recent Monitor Data Heart Rate from ECG 116 NIBP 112/71 NIBP BP-Mean 103 Respiration from ECG 20 SpO2 98 I&O: 03/11/17 03/12/17 03/13/17 06:59 06:59 06:59 Intake Total 710 1030 Output Total 300 350 Balance 410 680 Result Diagrams: 03/11/17 05:07 03/11/17 05:07 Phys Exam - Physical Examination Constitutional: NAD cachectic dry MM, dubhuff tube+ Neck: no JVD, supple Respiratory: no wheezing, no rales, no rhonchi Cardiovascular: RRR, no significant murmur, no rub Gastrointestinal: soft, positive bowel sounds ascites+ Musculoskeletal: no edema, pulses present Lymphatic: no nodes Deviation from normal: lethargic Skin: no rash Dx/Plan (1) Acute kidney failure Status: Acute (2) Aspiration pneumonia Code(s): J69.0 - PNEUMONITIS DUE TO INHALATION OF FOOD AND VOMIT Status: Acute (3) Cirrhosis of liver Code(s): K74.60 - UNSPECIFIED CIRRHOSIS OF LIVER Status: Acute Qualifiers: Ascites presence: with ascites (4) Ascites Code(s): R18.8 - OTHER ASCITES Status: Acute Qualifiers: Ascites type: due to alcoholic cirrhosis Qualified Code(s): K70.31 - Alcoholic cirrhosis of liver with ascites (5) Hyponatremia Code(s): E87.1 - HYPO-OSMOLALITY AND HYPONATREMIA Status: Acute (6) Thrombocytopenia Code(s): D69.6 - THROMBOCYTOPENIA, UNSPECIFIED Status: Acute (7) Anemia, normocytic normochromic Code(s): D64.9 - ANEMIA, UNSPECIFIED Status: Chronic (8) Failure to thrive Code(s): [id number] - Status: Chronic (9) 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 - NEOPLASM OF UNSPECIFIED BEHAVIOR OF DIGESTIVE SYSTEM Status: Chronic (10) Oropharyngeal dysphagia Code(s): R13.12 - DYSPHAGIA, OROPHARYNGEAL PHASE Status: Acute (11) Chronic hepatitis C Code(s): B18.2 - CHRONIC VIRAL HEPATITIS C Status: Chronic (12) Protein-calorie malnutrition, moderate Code(s): E44.0 - MODERATE PROTEIN-CALORIE MALNUTRITION Status: Chronic - Plan cont current plan of care, plan discussed w/ family, garcia catheter, continue antibiotics, director of social work * spoke with son about grave prognosis * son decided today that he prefers comfort care * he will give final decision after talking to rest of family * he [facility] * once decision made, will dc dubhuff tube, iv antibiotics and only consider comfort care * medication reviewed as below * symptomatic treatment. Review of Systems - Review of Systems Other: unable to review as pt is lethargic - Medications/Allergies Allergies/Adverse Reactions: Allergies Allergy/AdvReac Type Severity Reaction Status Date / Time No Known Allergies Allergy Verified 08/24/16 12:15 Medications: Current Medications Acetaminophen (Tylenol) 650 mg NE Q4H PRN PRN Reason: Headache/Fever or Pain Acetaminophen (Tylenol) 650 mg PER TUBE Q4H PRN PRN Reason: Headache/Fever or Pain Hydrocodone Bitart/Acetaminophen ([place] 5/325) 1 tab PER TUBE Q4H PRN PRN Reason: Moderate Pain (4-6) Last Admin: 03/12/17 05:42 Dose: 1 tab Al Hydroxide/Mg Hydroxide (Maalox) 15 ml PER TUBE Q4H PRN PRN Reason: Heartburn or Indigestion Albuterol/Ipratropium (Duoneb) 3 ml NEB [id number] KARLA Last Admin: 03/12/17 06:14 Dose: 3 ml Artificial Tears (Tears Naturale) 0 drop EA EYE PRN PRN PRN Reason: Dry Eyes Bisacodyl (Dulcolax) 10 mg PO DAILYPRN PRN PRN Reason: Constipation Lidocaine HCl 10 ml/ Al (Hydroxide/Mg Hydroxide 30 ml) 0 ml SSW TIDPRN PRN PRN Reason: painful swallowing Last Admin: 03/02/17 16:56 Dose: 1 dose Famotidine (Pepcid) 20 mg PER TUBE DAILY [facility] Last Admin: 03/11/17 09:13 Dose: 20 mg Gabapentin (Neurontin) 100 mg PO TID [facility] Last Admin: 03/11/17 20:08 Dose: 100 mg Guaifenesin (Robitussin Sf) 200 mg PER TUBE Q4H PRN PRN Reason: Cough Guaifenesin (Robitussin Sf) 600 mg PER TUBE Q12HR [facility] Last Admin: 03/11/17 20:07 Dose: 600 mg Hydralazine HCl (Apresoline) 10 mg SLOW IVP Q4H PRN PRN Reason: Systolic BP > 180 Sodium Chloride (Normal Saline 0.9%) 1,000 mls @ 50 mls/hr IV .Q20H [facility] Last Admin: 03/12/17 05:46 Dose: 1,000 mls Meropenem 500 mg/Miscellaneous Medication 1 each/ Sterile Water 10 mls @ 120 mls/hr SLOW IVP Q8HR [facility] Last Admin: 03/12/17 05:26 Dose: 10 mls Lactulose (Lactulose) 10 gm PER TUBE DAILYPRN PRN PRN Reason: Constipation Loperamide HCl (Imodium) 2 mg PER TUBE PRN PRN PRN Reason: Diarrhea/Loose Stools Loratadine (Claritin) 10 mg PER TUBE DAILYPRN PRN PRN Reason: Sinus Symptoms Magnesium Hydroxide (Milk Of Magnesium) 30 ml PER TUBE DAILYPRN PRN PRN Reason: Constipation Metoclopramide HCl (Reglan) 5 mg IVP Q8HR [facility] Last Admin: 03/12/17 05:26 Dose: 5 mg Mineral Oil/White Petrolatum (Eucerin Cream) 0 gm TOP BIDPRN PRN PRN Reason: Dry Skin Morphine Sulfate (Morphine) 2 mg IV Q4H PRN PRN Reason: Moderate to Severe Pain (6-10) Last Admin: 03/03/17 23:30 Dose: 2 mg Ondansetron HCl (Zofran) 4 mg IVP Q6H PRN PRN Reason: Nausea/Vomiting Ondansetron HCl (Zofran Odt) 4 mg PER TUBE Q6H PRN PRN Reason: Nausea/Vomiting Phenol (Chloraseptic [place] 180 Ml Bot) 0 ml PO PRN PRN PRN Reason: Sore Throat Last Admin: 03/02/17 21:30 Dose: 2 spray Sodium Chloride ([place] Nasal [place] 0.65%) 0 ml EA NARE QIDPRN PRN PRN Reason: Nasal Congestion Sodium Chloride (Flush - Normal Saline) 10 ml IVF Q12HR [facility] Last Admin: 03/11/17 20:10 Dose: 10 ml Sodium Chloride (Flush - Normal Saline) 10 ml IVF PRN PRN PRN Reason: Saline Flush Last Admin: 03/08/17 21:08 Dose: 10 ml
[2017-03-12] MEDS: Lorazepam 2 MG/ML VIAL SLOW IVP PRN (15:14)
[2017-03-12] MEDS: Famotidine 20 MG TAB PER TUBE SCH (17:24)
[2017-03-12] MEDS: Diabetic Tussin 200 MG/10 ML UDCUP PER TUBE SCH (17:24)
[2017-03-12] MEDS: Gabapentin 100 MG CAP PO SCH (17:24)
[2017-03-12] MEDS ORDERED: Lorazepam 2 MG/ML VIAL SLOW IVP PRN (19:57)
[2017-03-13] MEDS: Morphine 4 MG/ML VIAL SLOW IVP PRN ×2 (01:19→10:38)
[2017-03-13] MEDS: Metoclopramide HCl 10 MG/2 ML VIAL IVP SCH (05:29)
[2017-03-13] MEDS: Lorazepam 2 MG/ML VIAL SLOW IVP PRN (09:28)
[2017-03-13 09:30] VITALS: BP 77/53
--- NOTE | 2017-03-13 12:01 | DIS ---
PRIMARY CARE PHYSICIAN: Get Paris M.D. DATE OF ADMISSION: 02/25/2017 DATE OF DISCHARGE: 03/13/2017 DISCHARGE DISPOSITION: [facility]. PRIMARY DISCHARGE DIAGNOSES: 1. Aspiration pneumonia. 2. Acute kidney failure. 3. Refractory ascites. 4. Oropharyngeal dysphagia. 5. Severe protein calorie malnutrition. SECONDARY DISCHARGE DIAGNOSES: Tonsillar neoplasm, failure to thrive and adult chronic hepatitis C, chronic normocytic anemia, thrombocytopenia, cirrhosis of liver with portal hypertension. PRIMARY PROCEDURE/OPERATION: Paracentesis was done. RADIOLOGICAL INVESTIGATION: Chest x-ray, abdomen x-ray, several chest x-rays. SIGNIFICANT LABORATORY DATA: WBC 18.7, hemoglobin 14.7, platelets 58, INR 1.7. Sodium 145, potassiu m 4.4, BUN 95, creatinine 2.04, calcium 9.9, phosphorus 4.1, magnesium 2.1, AST 37, ALT 15, alkaline phosphatase 96, albumin 1.9. Ammonia 49. Urinalysis normal. Ascites fluid wbcs 10, rbcs 60. Hepat itis C positive. Urine culture negative. DISCHARGE MEDICATIONS: The patient is discharged to inpatient hospice facility for comfort care only and will defer medications based on [facility] team. The patient will have only comfort measures. CONTRAINDICATIONS: None. CODE STATUS: DNR. This was made during this hospital. Out of hospital DNR paperwork was done on day of discharge. INPATIENT CONSULTANTS: Dr. Monahan was following for aspiration pneumonia. GI team was following fo r cirrhosis of liver. TEST RESULTS PENDING ON DISCHARGE: None. ALLERGIES: No known drug allergy. DISCHARGE PLAN: Post hospital, the patient is discharged to inpatient hospice facility for comfort c are only. HOSPITAL COURSE: A 77-year-old male who was admitted on 02/25/[address] Jamil, please see his H&P for further details. This patient has a history of tonsillar cancer and he was getting radiation the rapy before. This [facility] [place] and from t here he was sent to our hospital for further evaluation. This patient was recently diagnosed with to nsillar cancer and he was getting chemoradiation therapy and he became more weak. When he was admitted in our hospital, at that time he was having cough, shortness of breath, and prod uctive sputum. He was overall very weak and malnourished on admission. We diagnosed as aspiration p neumonia. He was initially evaluated at [facility] emergency Room and then he was transferred to our ospital. He was admitted to medical floor. We treated him with broad spectrum antibiotic therapy with vancomy prasanna, Zosyn, and Levaquin. He also had hyponatremia that was related with cirrhosis as well as protei n calorie malnutrition. He remained in hospital for several days and he was not safe for any kind of oral intake. He was not also improving his condition. He required ICU transfer one time because his condition deteriorated and at that point Pulmonary started seeing this patient as well. He required ICU transfer on 017 and subsequently he was transferred to medical floor. This patient got so weak that he is becoming more and more cachectic, even he cannot talk because of that weakness and he is not able to handle his oral secretions. The patient did not want to go for P EG tube placement and PEG tube was also not an option because of ascites. We discussed with the [employer] member about his goal of care and family members were realistic and this patient's condition is ge tting worse and that is why they decided to make him DNR. After that, we continued IV antibiotic therapy. We changed Zosyn to meropenem as there was no improv ement. The patient was getting diuretic therapy and that made him acute kidney failure and that is w hy we stopped the diuretic therapy and started giving IV fluid. The patient was not getting any nutrition and that is why we put a Dobbhoff tube and started nutritio n while in hospital. The patient was not a good candidate for PEG tube placement and GI was followin g while in hospital. Finally, the patient's condition even more degenerated and I spoke with the family member today and s pent time with them and they agreed with inpatient hospice. [facility] agreed t o take him to their own facility and Dr. Jerome will manage his end of life care. At this point, the patient's prognosis is extremely poor. The patient is seen and examined at [facility] today. I spoke with the family member. I spoke with the hospice team and the nurse taking care of this patient. He is dying and his prognosis is extremely poor. PHYSICAL EXAMINATION: VITAL SIGNS: Currently, temperature 97.4, pulse 93, respiratory rate 16, O2 saturation 97% on 2 lite rs of oxygen, blood pressure 77/53. Weight 175 pounds. GENERAL: The patient is lethargic, drowsy, sleepy, no acute distress. Dry mucous membranes. NECK: Supple with radiation changes. LUNGS: Coarse breath sounds without any rhonchi or rales. CARDIAC: S1, S2 regular, tachycardia. ABDOMEN: Soft, ascites present. EXTREMITIES: No edema. NEUROLOGIC: Unable to assess at this point. Paperwork for discharge done. Out of hospital DNR paperwork was done. Total time spent on discharge day 31 minutes.
[2017-03-13 14:45] VITALS: TEMP 97
== END 2017-03-13 13:57 | disposition hospice, inpatient (51) | DRG 177 ==
LOC: ERS 18:06 → T4-B 19:46 → CCU 03-06 20:35 → T4-B 03-07 22:51
PROVIDERS: ADMIT Internal Medicine; ATTEND Internal Medicine
PROC: 0W9G3ZX Drainage of Peritoneal Cavity, Percutaneous Approach, Diagnostic (ICD-10-PCS; principal; 2017-03-04)
PROC: 0W9G3ZZ Drainage of Peritoneal Cavity, Percutaneous Approach (ICD-10-PCS; 2017-03-08)
DX: J69.0 Pneumonitis due to inhalation of food and vomit (principal); E43 Unspecified severe protein-calorie malnutrition; N17.9 Acute kidney failure, unspecified; K76.6 Portal hypertension; D69.6 Thrombocytopenia, unspecified; R64 Cachexia; K70.31 Alcoholic cirrhosis of liver with ascites; E87.1 Hypo-osmolality and hyponatremia; C09.9 Malignant neoplasm of tonsil, unspecified; Z51.5 Encounter for palliative care; Z66 Do not resuscitate; E88.09 Other disorders of plasma-protein metabolism, not elsewhere classified; R62.7 Adult failure to thrive; R13.12 Dysphagia, oropharyngeal phase; B18.2 Chronic viral hepatitis C; D64.9 Anemia, unspecified; Z68.25 Body mass index [BMI] 25.0-25.9, adult
CPT/HCPCS: 36415; 36416; 49083; 71010; 74000; 74230; 76705; 80048; 80053; 80074; 80202; 81001; 82042; 82105; 82140; 82805; 83735; 84100; 84157; 85025; 85060; 85610; 85730; 86706; 86708; 87070; 87086; 87205; 87522; 89051; 94640; 96365; A4216; G8978-GP-CK; G8978-GP-CM; G8979-GP-CI; G8979-GP-CJ; G8987-GO-CJ; G8988-GO-CH; G8996-GN-CK; G8996-GN-CN; G8997-GN-CK; G8997-GN-CM; J1650; J1940; J1956; J2060; J2185; J2270; J2543; J2765; J2930; J3370; J3430; J7050; J7620